=== PATIENT | female | born 1955 | race Caucasian/White ===

== ENCOUNTER 2024-12-19 18:18 | Emergency (ER) | payer MEDICARE, MEDICAID, SELFPAY ==
[2024-12-19 18:21] VITALS: BP 123/79; PULSE 99; RESP 18; TEMP 36.7; O2SAT 98
[2024-12-19 18:32] VITALS: BP 136/89; PULSE 100; PULSE 98; RESP 18; RESP 20; TEMP 36.6; O2SAT 98; BMI 27.3
--- NOTE | 2024-12-19 18:32 | PC.NURSE ---
PT BROUGHT IN BY AMBULANCE FOR FREQUENT FALLS, WITH ANOTHER FALL TODAY. DENIES HITTING HEAD. PER MEDIC DURING TRANSPORT PT WAS MAKING 'WEIRD STATEMENTS.
--- NOTE | 2024-12-19 18:58 | PC.NURSE ---
Rickey FARAH IN TO SEE PT
--- NOTE | 2024-12-19 19:03 | PD.EDFALL ---
ED Fall Injury RME/HPI General Chief Complaint: Fall Stated Complaint: FALL Time Seen by Provider: 12/19/24 18:56 Arrival date/time: 12/19/24 18:18 RME / HPI RME / HPI Narrative: Dr. 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 Patient states she's fallen 3 times in the last few days (one on Thursday and twice today). Patient states she fell today due to her legs being weak. Patient denies any head strikes or loss of consciousness. Patient reports having right thigh pain, but denies any chest pain, shortness of breath, cough, fever, chills, dysuria, headache, neck pain, palpitations or any other associated symptoms. Denies any tobacco, alcohol or illicit drug use. Denies any sick contacts or recent travel. Patient does live alone and uses a cane to ambulate. Related Data Home Medications ?Medication ?Instructions ?Recorded ?Confirmed Levothyroxine * (SYNTHROID *) ##30 02/01/15 Losartan Potassium * (COZAAR *) 100 mg PO QDAY #0 tabs 02/01/15 Allergies Allergy/AdvReac Type Severity Reaction Status Date / Time penicillin Allergy Severe Hives Verified 12/19/24 18:40 Review of Systems Review of Systems Systems Reviewed: All systems reviewed, normal except as documented Past Medical History Past Medical History CARDIAC: Negative Congestive Heart Failure RESPIRATORY: Negative Chronic Obstructive Pulmonary Disease (COPD) GENITOURINARY: Negative Renal Disease ENDOCRINE: Negative Diabetes Mellitus Type 1 or Diabetes Mellitus Type 2 OTHER HISTORY: Positive Falls Social History SMOKING STATUS: Current every day smoker ED Exam Narrative Physical exam: GEN. APPEARANCE: The patient is alert awake oriented X-3 in no distress, lying down comfortably, chronically ill. Patient has good eye contact. Patient is cooperative. VITALS: All vitals were reviewed and the pulse ox is 98% on room air which is normal according to my interpretation. HEENT: Normocephalic, atraumatic. Pupils are equal and reactive. Oral mucosa is moist. Patent Nares NECK: Supple, nontender, no thyromegaly, no meningismus, no JVD, no step offs, no midline tenderness on palpation. CHEST: Symmetrical, atraumatic, and with equal expansion , Nontender on palpation no deformity and no crepitus. CARDIOVASCULAR: Heart regular rhythm no murmur or gallop rub or extra beats. LUNGS: Clear to auscultation bilaterally with symmetrical chest rise. No laboring tachypnea or wheezing. No intercostal subcostal retraction. No rales and no rhonchi. ABDOMEN: Soft, flat, nontender to palpation, no guarding or rebound tenderness. There are no abnormal masses palpated. Active and normal bowel sounds. EXTREMITIES: Tenderness to palpation at the right medial and lateral thigh. N/V intact. No edema. No cyanosis. Patient is able to move all 4 extremities well, with full ROM and good CSM. SKIN: Warm and dry, no jaundice or rashes noted NEURO: Patient is VILLAVICENCIO x 4, Cranial nerves II through XII grossly intact. There is no focal neurologic deficits noted. GCS is 15, PNS and MILLING MACHINE OPERATOR GEAR appear grossly intact. PSYCHIATRIC: Patient is in normal mood and affect. Course Quality Measures none Orders Category Date Time Status EKG (ED ONLY) *Do not use* NOW Care 12/19/24 19:04 Completed Transfuse,blood/blood products NOW Care 12/19/24 20:[address] head/brain wo con Stat Exams 12/19/24 19:04 Completed EKG (ED Only) Stat Exams 12/19/24 19:04 Draft XR femur RT 2V Stat Exams 12/19/24 19:04 Completed XR pelvis 1-2V Stat Exams 12/19/24 19:04 Completed CBC Stat Lab 12/19/24 19:18 Completed CK [Creatine Kinase] Stat Lab 12/19/24 19:18 Completed CMP [Comprehensive Metabolic Panel] Stat Lab 12/19/24 19:18 Completed Troponin I Stat Lab 12/19/24 20:46 Completed Type and Screen Stat Lab 12/19/24 20:46 Received Urinalysis, C/S if Indicated Stat Lab 12/19/24 21:19 Completed Urine Culture Stat Lab 12/19/24 21:19 Received prbc [Red Blood Cells] Stat Lab 12/19/24 20:46 Received Potassium Chloride [K-Dur] Med 12/19/24 20:19 Discontinued 40 meq PO X1 ONE Ringers Lactated 500 ml [Lactated Ringers] 500 ml Med 12/19/24 19:06 Discontinued IV 500 mls/hr Vital Signs Vital signs: Vital Signs Temperature 98.1 F 12/19/24 18:21 Pulse Rate 99 12/19/24 18:21 Respiratory Rate 18 12/19/24 18:21 Blood Pressure 123/79 12/19/24 18:21 Pulse Oximetry (%) 98 12/19/24 18:21 Oxygen Delivery Method Room Air 12/19/24 18:21 Fall MDM Narrative MDM Narrative:: Scribe Attestation: 12/19/24 - Linsey Maher am scribing for and in the presence of Dr. Vincent. Hemoglobin is low at 7.6. Given the patient having generalized weakness, will transfuse 1 unit pRBCs. Patient is hypokalemic, will replete level. Creatinine is 1.9, patient received 500mL of LR. Troponin elevated, EKG without evidence of ischemia and arrhythmia rectal exam performed with inhalation therapy teacher present, which showed guaiac stool is negative. Patient denies any hematemesis, bloody or black stools. Discussed results with the patient and she feels comfortable going home after receiving her blood transfusion. Patient data External records reviewed:: [facility] previous records (Per chart review, patient was seen here on 01/22/20 for laceration of the left leg.) and EMS form Clinical information provided by:: patient Social determinants that could affect healthcare access:: none Patient has the following chronic illnesses:: none How is presenting disease/condition affected by chronic disease/condition?: no chronic disease Evaluation data The following diagnostics were reviewed and interpreted by me:: lab results, radiology exam(s) and EKG tracing(s) Lab and/or radiology exams considered but not ordered:: none Interpretation Summary: Labs remarkable for HnH 7.6/23.5, Potassium 3.1, Creatinine 1.9. EKG done at 1947, NSR, rate of 95, normal intervals, RBBB, no acute ischemia, according to my interpretation. --------- [facility] Report Signed Patient: ANGIE CASTLE [facility]. Record#: [id number] Birthdate: 1955 Age/Sex: 69 / F Location: [facility] Attending Dr: Ordering Physician: Delmy Vincent MD Date of Service: 12/19/24 Procedure(s): CT head/brain wo con Accession Number(s): [id number] cc: Fahad Pate MD; NO PRIMARY/FAMILY,PHYSICIAN; Delmy Vincent MD~ Examination: CT brain head without contrast. 2-D sagittal coronal reconstructions Date and time of exam:December 19, 2024 1921 hours INDICATIONS: Patient fell today with injury to the head, head pain CTDI: vol (mGy):49.5 DLP: (mGycm):976 Technique: Multiple CT axial sections of the brain have been obtained, 5 mm slice thickness. Contrast has not been administered. 2-D sagittal, coronal reconstructions have been obtained Low dose protocols were performed. One or more of the following dose reduction techniques were used; automated exposure control, adjustment of the mA and/or KV according to patient size, use of iterative reconstruction technique. Findings: No significant ventricular enlargement. Intra-axial or extra-axial hemorrhage density is not seen. No mass effect or midline shift Basal cisterns are not remarkable. Fourth ventricle is midline. Cranial vault intact. Impression: Negative for acute hemorrhage, mass effect or midline shift Dictated By: Fahad Pate MD Signed By: <Electronically signed by Fahad Pate MD in OV> 12/19/241951 [facility] Report Signed Patient: ANGIE CASTLE Record#: [id number] Birthdate: 1955 Age/Sex: 69 / F Location: [facility] Attending Dr: Ordering Physician: Delmy Vincent MD Date of Service: 12/19/24 Procedure(s): XR femur RT 2V Accession Number(s): [id number] cc: Chauncey Angel MD; Fahad Pate MD; Delmy Vincent MD~ Examination: Right femur 2 views TECHNIQUE: Right femur 2 views AP lateral Date and time: December 19, 20241950 hours INDICATIONS: Patient fell 3 days ago with injury to the right femur, right femur pain FINDINGS: No acute hip or femoral shaft fracture No foreign body IMPRESSION: No acute fracture Dictated By: Fahad Pate MD Signed By: <Electronically signed by Fahad Pate MD in OV> 12/19/242055 [facility] Report Signed Patient: ANGIE CASTLE [facility] Record#: [id number] Birthdate: 1955 Age/Sex: 69 / F Location: [facility] Attending Dr: Ordering Physician: Delmy Vincent MD Date of Service: 12/19/24 Procedure(s): XR pelvis 1-2V Accession Number(s): [id number] cc: Chauncey Angel MD; Fahad Pate MD; Delmy Vincent MD~ Examination: AP pelvis single view TECHNIQUE: AP portable supine pelvis single view Date and time: December 19, 2024 1949 hours INDICATIONS: Patient fell this week with injury to the pelvis, hip and pelvic pain. FINDINGS: No acute hip or pelvic fracture No hip dislocation IMPRESSION: No acute hip or pelvic fracture Dictated By: Fahad Pate MD Signed By: <Electronically signed by Fahad Pate MD in OV> 12/19/242056 Medications / Prescriptions Medications or Prescriptions considered but not ordered:: none Medication administrations:: Medication Administration History Discontinued Medications Lactated Ringer's (Lactated Ringers) 500 mls @ 500 mls/hr IV .Q1H ONE Stop: 12/19/24 20:05 Last Infusion: 12/19/24 21:12 Dose: Infused Documented By: Admin: 12/19/24 20:03 Dose: 500 mls/hr Documented By: SCOTT Potassium Chloride (Potassium Chloride 20 Meq Tabcr) 40 meq PO X1 ONE Stop: 12/19/24 20:20 Last Admin: 12/19/24 20:39 Dose: 40 meq Documented By: RASHAD see above Consultations Consultation(s) initiated? (list below): No Diagnosis Fall Differential Diagnosis: other (GI bleed, ACS, arrhythmia, ICH, metabolic disturbance, UTI) Most likely diagnosis given after review of the tests above:: anemia, hypokalemia Admission Indicated Admission indicated?: not indicated Admission Request Was there a request for admission?: No Disposition Plan Disposition Plan: Discharge Discharge Attestation Discharge Attestation: The patient and all family members were given an opportunity to ask questions and understood the discharge instructions. Discharge instructions specifically effects, indications for sooner follow up or return to the emergency department, and the expected course of current diagnosis. Patient condition: Stable Critical Care Time Critical Care Time Critical Care Time: Yes Total Critical Care Time (min.): 35 Attestation: The high probability of sudden, clinically significant deterioration in the patient?s condition required the highest level of my preparedness to intervene urgently. The services I provided to this patient were to treat and/or prevent clinically significant deterioration. Services included the following: chart data review, reviewing nursing notes and/or old charts, documentation time, hospice care sales consultant collaboration regarding findings and treatment options, medication orders and management, direct patient care, vital sign assessments and ordering, interpreting and reviewing diagnostic studies and lab tests. Aggregate critical care time includes only time during which I was engaged in work directly related to the patient?s care, as described above, whether at bedside or elsewhere in the Emergency Department. It did not include time spent performing other reported procedures or the services of residents, students, nurses or physician assistants. Discharge Plan Plan Patient Disposition: HOME (Self Care) Prescriptions/Referrals Prescriptions/Med Rec: No Action Levothyroxine * (SYNTHROID *) 25 MCG tablet Qty: 30 Losartan Potassium * (COZAAR *) 100 MG tablet 100 mg PO QDAY Qty: 0 Problem List Clinical Impression: Syncope, Symptomatic anemia Patient/Caregiver Discharge Instructions Discharge Activity: activity as tolerated Education Materials: Anemia Print Language: Spanish Stand Alone Forms: [facility] Award Info., Patient Portal Info Letter
--- NOTE | 2024-12-19 19:04 | EKG_ITS ---
[facility] Test Date: 2024-12-19 Pat Name: ANGIE CASTLE Department: Room: - Gender: Female [employer] Program Director: : 1955 Requested By: Delmy Hernandez Order Number: [id number] Reading MD: Delmy Hernandez Measurements Intervals [place] Rate: 95 P: 64 ID: [id number] QRS: -76 QRSD: 133 T: 27 QT: 378 QTc: 476 Interpretive Statements SINUS RHYTHM RIGHT BUNDLE BRANCH BLOCK [120+ ms QRS DURATION, UPRIGHT V1, 40+ ms S IN I/aVL/V4/V5/V6] LEFT ANTERIOR FASCICULAR BLOCK [QRS AXIS <= -45, QR IN I, RS IN II] No previous ECG available for comparison /store/S0/[id number].pdf
--- NOTE | 2024-12-19 19:04 | XR_ITS ---
Examination: Right femur 2 views TECHNIQUE: Right femur 2 views AP lateral Date and time: December 19, 2024 1951 hours INDICATIONS: Patient fell 3 days ago with injury to the right femur, right femur pain FINDINGS: No acute hip or femoral shaft fracture No foreign body IMPRESSION: No acute fracture
[2024-12-19 19:42] LABS: Basophils % (Auto) 1 % (0-2.5); Eosinophils # (Auto) 0.1 Thou/mm3 (0.0-0.5); Eosinophils % (Auto) 2 % (0-10); Hematocrit 23.5 % (36.0-46.0); Hemoglobin 7.6 g/dL (12.0-16.0); Immature Granulocytes % (Auto) 1 % (0-0); Immature Granulocytes Auto 0.04 Thou/mm3 (0.00-0.00); Lymphocytes # (Auto) 1.2 Thou/mm3 (1.0-4.8); Lymphocytes % (Auto) 20 % (10-50); Mean Corpuscular HGB Conc 32.3 g/dl (31.0-37.0); Mean Corpuscular Hemoglobin 32.9 pg (25.0-35.0); Mean Corpuscular Volume 102 fL (80-100); Monocytes # (Auto) 0.5 Thou/mm3 (0.0-0.8); Monocytes % (Auto) 8 % (0-12); Neutrophils # (Auto) 3.9 Thou/mm3 (1.8-7.7); Neutrophils % (Auto) 68 % (37-80); Nucleated Red Blood Cell % 0 /100 WBC (0); Platelet Count 324 Thou/mm3 (140-440); RDW Standard Deviation 76.9 fL (36.4-46.3); Red Blood Count 2.31 Miln/mm3 (4.00-5.20); White Blood Count 5.8 Thou/mm3 (3.6-11.0)
[2024-12-19 19:56] LABS: Alanine Aminotransferase < 7 U/L (10-49); Albumin, Serum 3.5 gm/dL (3.4-4.8); Albumin/Globulin Ratio 1.7 (1.2-2.2); Alkaline Phosphatase 153 U/L (46-116); Anion Gap 11 (7-16); Aspartate Amino Transferase 18 U/L (0-34); BUN/Creatinine Ratio 8 Ratio (12-20); Bilirubin,Total 0.4 mg/dL (0.3-1.2); Blood Urea Nitrogen 16 mg/dL (9-23); Calcium 9.4 mg/dL (8.3-10.6); Calcium (Corrected) 9.8 mg/dL (8.5-10.1); Carbon Dioxide 26.6 mMol/L (20.0-31.0); Chloride 104 mMol/L (98-107); Creatine Kinase 162 U/L (34-171); Creatinine (Component) 1.9 mg/dL (0.6-1.3); Estimated Creatinine Clearance 31.3 mL/min (>60); Globulin 2.1 gm/dL (2.3-3.5); Glucose 94 mg/dL (74-106); Osmolality,Calculated 284 (275-295); Potassium 3.1 mMol/L (3.4-5.1); Sodium 142 mMol/L (136-145); Total Protein 5.6 gm/dL (5.7-8.2); eGFR 28 See Note
[2024-12-19] MEDS: RINGERS LACTATED 500 ML 500 ML IV (20:03)
--- NOTE | 2024-12-19 20:11 | PC.NURSE ---
EKG done. purewick in place to collect ua
[2024-12-19] MEDS: POTASSIUM CHLORIDE 20 mEq TABCR 40 MEQ PO (20:39)
[2024-12-19 21:12] LABS: Troponin I < 0.020 ng/mL (0.0-0.045)
[2024-12-19 21:24] LABS: Collection Type, Urine Clean Catch; Squamous Epithelial Cell,Urine 0 /hpf (0-5)
[2024-12-19 21:37] LABS: Bacteria,Urine Rare; Bilirubin,Urine Negative (Negative); Blood,Urine Negative (Negative); Clarity,Urine Turbid (Clear/Hazy); Color,Urine Lt-Yellow (Lt Yel-Yel); Culture Indicated,Urine Yes; Glucose, Urine Negative (Negative); Ketones,Urine Negative (Negative); Leukocyte Esterase,Urine Positive (Negative); Nitrite,Urine Positive (Negative); Protein,Urine Negative (Neg - Trace); RBC,Urine 2 /hpf (0-3); Specific Gravity,Urine 1.019 (1.001-1.035); Urobilinogen,Urine Negative mg/dL (0.0-1.0); WBC,Urine 7 /hpf (0-5)
[2024-12-19 22:23] VITALS: BP 179/96; PULSE 88; RESP 24; TEMP 36.8; O2SAT 100
[2024-12-20] VITALS (8 sets, daily range): BP systolic 167–178; BP diastolic 76–102; PULSE 84–95; RESP 17–22; TEMP 36.5–37; O2SAT 98–99
[2024-12-20] MEDS: NICOTINE PATCH 7 MG/24 HR PATCH.TD24 TOP (04:59)
--- NOTE | 2024-12-20 06:19 | PC.NURSE ---
vs taken. mikki care provided. new purewick, brief and complete linen change.
--- NOTE | 2024-12-20 06:53 | PC.NURSE ---
PATIENT CALLED FRIEND JAMES TO CAME GIVE HER A RIDE HOME. HOWEVER, PATIENTS FRIEND DOES NOT FEEL LIKE PATIENT IS SAFE TO GO HOME AND TAKE CARE OF HER SELF. FRIEND STATES, PATIENT IS SEEING PEOPLE THAT ARE . NOTIFIED DR. MESSINA IF PATIENT CAN HAVE A SOCIAL SERVICE CONSULT.
--- NOTE | 2024-12-20 06:56 | EDNOTE_ITS ---
Emergency Room Addendum Addendum Narrative: 0650: The patient was queued for discharged by previous physician Dr. Vincent following completion of blood transfusion. However, I was approached by the RN, who reported that the friend contacted to machine operator hop picker the patient up expressed concerns about her safety at home. The friend reported the patient lives alone and often has visual hallucinations. The friend is requesting the patient be placed into a nursing facility. I spoke with the patient who is awake, alert, and oriented x3. Patient was made aware of her friends concerns and request for jail placement. The patient is declined placement and states she feels safe returning home. She admits to living alone but mentioned she is actively seeking someone to assist her at home. Plan to consult with aids social worker for further evaluation and support. [id number]: The nephrology social worker reports she has met with the patient and spoke with the friend over the phone. Reports they had a long discussion and have a plan set in place for the patient to follow up with PCP for further evaluation. Patient will be discharged home.
--- NOTE | 2024-12-20 07:59 | PC.CC ---
STEVO Olmedo called pts Person to Notify, Christine Blas [phone] and informed her that pt is absolutely declining SNF and wants to go home, as she is ready for d/c. Christine reported that she is concerned because pt is displaying sxs of and is worried to leave her alone. Christine reported that she is the only person that the pts trusts and takes care of her, but does not live with her. Christine stated she plans on filing a Power of Hospice Superintendent for medical purposes over the pt. Christine reported she will p/u pt in about 1 hour and take pthome.
== END 2024-12-20 09:04 | disposition home or self-care (01) ==
PROVIDERS: Emergency Provider Emergency Medicine; PCP Family Medicine
DX: R55 Syncope and collapse (principal); D64.9 Anemia, unspecified; R10.2 Pelvic and perineal pain; M79.604 Pain in right leg; I44.4 Left anterior fascicular block; I45.10 Unspecified right bundle-branch block
CPT/HCPCS: 36415; 36430; 70450; 72170; 73552; 80053; 81001; 82550; 84484; 85025; 86850; 86900; 86901; 86923; 87077; 87086; 87186; 93005; 96360; 99285; J7120; P9016; A9270

== ENCOUNTER 2024-12-23 12:57 | Emergency (ER) | payer OTHER, MEDICAID, SELFPAY ==
[2024-12-23] VITALS (7 sets, daily range): BP systolic 107–162; BP diastolic 63–101; PULSE 79–89; RESP 14–19; TEMP 36.4–37; O2SAT 96–100; BMI 26.6; BMI 11.0
--- NOTE | 2024-12-23 13:30 | XR_ITS ---
Examination: AP chest single view TECHNIQUE: AP portable upright chest single view Date and time: December 23, 2024 1350 hours Comparison October 13, 2005 INDICATIONS: Patient fell today with injury to the chest, chest pain FINDINGS: Normal heart size. No pneumothorax. Clavicles ribs appear intact IMPRESSION: No pneumothorax pulmonary contusion or hemothorax
--- NOTE | 2024-12-23 13:31 | XR_ITS ---
Examination: CT cervical spine without contrast 2-D sagittal reconstructions 2-D coronal reconstructions 3-D reconstructions. Exam date and time:December 23, 2024 1421 hours INDICATIONS: Patient fell today with injury to the neck, neck pain CTDI:vol (mGy) 8.95 DLP: (mGycm) 175 Technique: Multiple 2 mm axial sections of the cervical spine have been obtained. The coronal and sagittal reconstructions have been obtained. 3-D reconstructions have been obtained. Low dose protocols were performed. One or more of the following dose reduction techniques were used; automated exposure control, adjustment of the mA and/or KV according to patient size, use of iterative reconstruction technique. Findings: Axial sections demonstrate intact base of the skull. Cervical fusion C3-C7 Adequate alignment 2 mm anterolisthesis C7 on T1 with advanced disc narrowing C7-T1 C1 exhibit satisfactory relationship to the odontoid. No acute cervical vertebral body fracture seen. Alignment posterior spinous processes satisfactory. Impression: No acute cervical fracture.
--- NOTE | 2024-12-23 13:31 | XR_ITS ---
Examination:Right hip AP, lateral, AP pelvis 3 views Technique: Hip AP lateral, AP pelvis, 3 views Exam date and time:December 23, 2024 1349 hours INDICATIONS: Patient fell today with into the right hip, right hip pain FINDINGS: No right hip fracture or dislocation Left hip bones of the pelvis appear intact IMPRESSION: No acute hip or pelvic fracture Repeat the AP pelvis in 1 day if right hip pain persists.
--- NOTE | 2024-12-23 13:31 | XR_ITS ---
Examination: CT brain head without contrast. 2-D sagittal coronal reconstructions Date and time of exam:December 23, 2024 1421 hours INDICATIONS: Patient fell today with injury to the head, head pain COMPARISON: December 19, 2024 CTDI: vol (mGy):49.9 DLP: (mGycm):966 Technique: Multiple CT axial sections of the brain have been obtained, 5 mm slice thickness. Contrast has not been administered. 2-D sagittal, coronal reconstructions have been obtained Low dose protocols were performed. One or more of the following dose reduction techniques were used; automated exposure control, adjustment of the mA and/or KV according to patient size, use of iterative reconstruction technique. Findings: No significant ventricular enlargement. Intra-axial or extra-axial hemorrhage density is not seen. No mass effect or midline shift Basal cisterns are not remarkable. Fourth ventricle is midline. Cranial vault intact. Impression: Negative for acute hemorrhage, mass effect or midline shift
[2024-12-23] MEDS: SODIUM CHLORIDE 0.9% 1000 ML 1,000 ML 999 ML IV (13:35)
--- NOTE | 2024-12-23 13:37 | PD.EDFALL ---
ED Fall Injury RME/HPI General Chief Complaint: Fall Stated Complaint: FALL Time Seen by Provider: 12/23/24 13:36 Arrival date/time: 12/23/24 12:57 RME / HPI RME / HPI Narrative: 69-year-old female patient with significant history of hypertension hypothyroidism, was brought in by EMS for evaluation regarding fall. Apparently patient sustained 2 ground-level fall today and when the EMS arrived patient was noted to be lying on the ground for several hours according to her. Patient is complaining of right hip pain. Denies any neck pain denies any headache denies any other complaints. No medication was taken prior to arrival. Related Data Home Medications ?Medication ?Instructions ?Recorded ?Confirmed Levothyroxine * (SYNTHROID *) ##30 02/01/15 Losartan Potassium * (COZAAR *) 100 mg PO QDAY #0 tabs 02/01/15 Allergies Allergy/AdvReac Type Severity Reaction Status Date / Time penicillin Allergy Severe Hives Verified 12/19/24 18:40 Review of Systems Review of Systems Narrative Review of Systems: Review of system reviewed and within normal limits except mentioned in HPI ED Exam Narrative Physical exam: VITAL SIGNS: Reviewed. GENERAL APPEARANCE: Alert and interactive, follows commands, no acute distress, HEAD AND FACE: Non-traumatic. ENT: PERRL, pink conjunctivitis, eyelid no trauma, Mucous membrane moist. NECK: Supple, nontender, no nuchal rigidity. CHEST: No tenderness, no crepitus, no paradoxical movement, no retractions. LUNGS: Clear, well ventilated, symmetric, no rales, no wheezing, no ronchi, no stridor, good breath sounds bilaterally. HEART: Regular rate, regular rhythm, no murmur, no gallops. ABDOMEN: Soft, positive bowel sounds, nondistended, no guarding, nontender, no rebound, no masses, RECTAL: Deferred. GENITAL: Deferred. NEUROLOGICAL: Gross motor function intact sensory function intact, Appropriate for age. MUSCULOSKELETAL: low back nontender, full range of motion. EXTREMITIES: Right hip tenderness, full range of motion. SKIN: Color pink, dry, no rash, no lacerations, no abrasions, no contusions. LYMPHATICS: Deferred. Course Quality Measures none Orders Category Date Time Status In and Out Catheter X1 Care 12/23/24 15:13 Completed PT [Referral Physical Therapy] Stat Cons 12/23/24 14:36 Completed Diet Cardiac Diet 12/24/[address] cervical spine wo con Stat Exams 12/23/24 13:[address] head/brain wo con Stat Exams 12/23/24 13:31 Completed XR chest 1V Stat Exams 12/23/24 13:30 Completed XR hip RT w pelvis 2-3V Stat Exams 12/23/24 13:31 Completed B-Type Natriuretic Peptide Stat Lab 12/23/24 13:43 Completed CBC Stat Lab 12/23/24 13:43 Completed CK [Creatine Kinase] Stat Lab 12/23/24 13:43 Completed Comprehensive Metabolic Panel Stat Lab 12/23/24 13:43 Completed Drug Screen,Urine Stat Lab 12/23/24 15:53 Completed Partial Thromboplastin Time Stat Lab 12/23/24 13:43 Completed Prothrombin Time with INR Stat Lab 12/23/24 13:43 Completed Troponin I Stat Lab 12/23/24 13:43 Completed Urinalysis, C/S if Indicated Stat Lab 12/23/24 15:53 Completed Urine Culture Stat Lab 12/23/24 15:53 Results Aspirin Med 12/23/24 13:30 Discontinued 325 mg PO X1 ONE LORazepam [Ativan Inj] Med 12/23/24 13:30 Discontinued 1 mg IVP X1 ONE Nicotine Patch [Nicoderm Patch] Med 12/23/24 17:30 Discontinued 21 mg TOP X1 ONE Nitroglycerin [Nitrostat 1/150] Med 12/23/24 13:30 Discontinued 0.4 mg SL Q5MIN PRN Sodium Chloride 0.9% 1000 ml [Ns] 1,000 ml Med 12/23/24 13:32 Discontinued IV 999 mls/hr cefTRIAXone [Rocephin] 1,000 mg Med 12/23/24 18:21 Discontinued Lidocaine 1% 20 ml [Xylocaine 1% 20 ML] 2.1 ml IM X1 Vital Signs Vital signs: Vital Signs Temperature 97.6 F 12/23/24 13:26 Pulse Rate 85 12/23/24 13:26 Respiratory Rate 19 12/23/24 13:26 Blood Pressure 162/95 H 12/23/24 13:26 Pulse Oximetry (%) 100 12/23/24 13:26 Oxygen Delivery Method Room Air 12/23/24 13:26 Fall MDM Narrative MDM Narrative:: 69-year-old female patient with significant history of hypertension hypothyroidism, was brought in by EMS for evaluation regarding fall. Apparently patient sustained 2 ground-level fall today and when the EMS arrived patient was noted to be lying on the ground for several hours according to her. Patient is complaining of right hip pain. Denies any neck pain denies any headache denies any other complaints. No medication was taken prior to arrival. X-ray of the hip came back unremarkable CT scan of the head came back unremarkable CT scan of the neck came back and unremarkable. His chest x-ray came back unremarkable. Urinalysis positive for UTI. Patient was referred to marriage and family social worker for placement. Care transferred to Dr. Luis for final disposition , Im going home at 1130 PM. Patient data External records reviewed:: None Clinical information provided by:: patient Social determinants that could affect healthcare access:: none Patient has the following chronic illnesses:: Frequent falls How is presenting disease/condition affected by chronic disease/condition?: exacerbated by Evaluation data The following diagnostics were reviewed and interpreted by me:: lab results and radiology exam(s) Lab and/or radiology exams considered but not ordered:: None Interpretation Summary: See results MDM Medications / Prescriptions Medications or Prescriptions considered but not ordered:: None Medication administrations:: Medication Administration History Discontinued Medications Aspirin (Aspirin 325 Mg Tablet) 325 mg PO X1 ONE Stop: 12/23/24 13:31 Last Admin: 12/23/24 13:36 Dose: Not Given Documented By: OLGA Non-Admin Reason: Cancelled by Provider Ceftriaxone Sodium 1,000 mg/ (Lidocaine HCl 2.1 ml) 0 mg IM X1 ONE Stop: 12/23/24 18:22 Last Admin: 12/23/24 18:27 Dose: 2.1 mg Documented By: OLGA Sodium Chloride (Ns) 1,000 mls @ 999 mls/hr IV .Q1H1M ONE Stop: 12/23/24 14:32 Last Infusion: 12/23/24 16:20 Dose: 0 mls/hr Documented By: Admin: 12/23/24 13:35 Dose: 999 mls/hr Documented By: OLGA Lorazepam (Lorazepam 2 Mg/Ml Vial) 1 mg IVP X1 ONE Stop: 12/23/24 13:31 Nicotine (Nicotine Patch 21 Mg/24 Hr Patch.Td24) 21 mg TOP X1 ONE Stop: 12/23/24 17:31 Last Admin: 12/23/24 17:36 Dose: 21 mg Documented By: DB Nitroglycerin (Nitroglycerin 0.4 Mg Subl Btl #25) 0.4 mg SL Q5MIN PRN PRN Reason: CHEST PAIN Ceftriaxone IM Consultations Consultation(s) initiated? (list below): No Diagnosis Fall Differential Diagnosis: syncope and other (Frequent falls, UTI) Most likely diagnosis given after review of the tests above:: Frequent falls, UTI Admission Indicated Admission indicated?: indicated Explain why admission is indicated or not indicated:: For placement Admission Request Was there a request for admission?: No Disposition Plan Disposition Plan: Transfer Discharge Plan Plan Patient Disposition: Xfer Skilled Nsg Fac (SNF) Prescriptions/Referrals Prescriptions/Med Rec: No Action Levothyroxine * (SYNTHROID *) 25 MCG tablet Qty: 30 Losartan Potassium * (COZAAR *) 100 MG tablet 100 mg PO QDAY Qty: 0 Problem List Clinical Impression: Frequent falls, UTI (urinary tract infection) Patient/Caregiver Discharge Instructions Print Language: Tamazight Stand Alone Forms: [facility] Award Info., Patient Portal Info Letter
--- NOTE | 2024-12-23 13:39 | PC.NURSE ---
PT BIBA FOR A FALL. PT LIVES ALONE BUT HAS NEIGHBORS THAT PERIODICALLY GOES AND HELPS PT. PT FELL TWICE TODAY . PT STATES SHES ON ELIQUIS
[2024-12-23 13:54] LABS: Basophils % (Auto) 1 % (0-2.5); Eosinophils # (Auto) 0.1 Thou/mm3 (0.0-0.5); Eosinophils % (Auto) 2 % (0-10); Hematocrit 29.3 % (36.0-46.0); Hemoglobin 9.8 g/dL (12.0-16.0); Immature Granulocytes % (Auto) 1 % (0-0); Immature Granulocytes Auto 0.09 Thou/mm3 (0.00-0.00); Lymphocytes # (Auto) 1.3 Thou/mm3 (1.0-4.8); Lymphocytes % (Auto) 17 % (10-50); Mean Corpuscular HGB Conc 33.4 g/dl (31.0-37.0); Mean Corpuscular Hemoglobin 32.6 pg (25.0-35.0); Mean Corpuscular Volume 97 fL (80-100); Monocytes # (Auto) 0.6 Thou/mm3 (0.0-0.8); Monocytes % (Auto) 8 % (0-12); Neutrophils # (Auto) 5.7 Thou/mm3 (1.8-7.7); Neutrophils % (Auto) 73 % (37-80); Nucleated Red Blood Cell % 0 /100 WBC (0); Platelet Count 328 Thou/mm3 (140-440); RDW Standard Deviation 76.7 fL (36.4-46.3); Red Blood Count 3.01 Miln/mm3 (4.00-5.20); White Blood Count 7.9 Thou/mm3 (3.6-11.0)
[2024-12-23 14:11] LABS: INR 1.2 (0.9-1.3); Partial Thromboplastin Time 30.3 Seconds (22.0-36.0); Prothrombin Time 13.4 Seconds (9.0-12.2)
[2024-12-23 14:15] LABS: B-Type Natriuretic Peptide 104 pg/mL (0-100)
[2024-12-23 14:26] LABS: Alanine Aminotransferase 7 U/L (10-49); Albumin, Serum 3.6 gm/dL (3.4-4.8); Albumin/Globulin Ratio 1.4 (1.2-2.2); Alkaline Phosphatase 149 U/L (46-116); Anion Gap 9 (7-16); Aspartate Amino Transferase 20 U/L (0-34); BUN/Creatinine Ratio 11 Ratio (12-20); Bilirubin,Total 0.2 mg/dL (0.3-1.2); Blood Urea Nitrogen 20 mg/dL (9-23); Calcium 8.8 mg/dL (8.3-10.6); Calcium (Corrected) 9.1 mg/dL (8.5-10.1); Chloride 101 mMol/L (98-107); Creatine Kinase 158 U/L (34-171); Creatinine (Component) 1.9 mg/dL (0.6-1.3); Estimated Creatinine Clearance 27.9 mL/min (>60); Globulin 2.6 gm/dL (2.3-3.5); Glucose 100 mg/dL (74-106); Osmolality,Calculated 276 (275-295); Potassium 3.8 mMol/L (3.4-5.1); Sodium 137 mMol/L (136-145); Total Protein 6.2 gm/dL (5.7-8.2); Troponin I < 0.020 ng/mL (0.0-0.045); eGFR 28 See Note
--- NOTE | 2024-12-23 15:28 | PC.CC ---
Patient is a 69 year-old female who presents to the hospital for fall. ASW received a consultation for SNF placement by bedside, MARY Mendez. GIOVANNAWIdalia made wqth-dy-hexj contact with patient. ASW introduced self, role, and reason for visit. Patient appeared alert and oriented to self, location, and situation. At bedside was patient's neighbor, Christine Blas whom patient provided consent to remain in the room during initial assessment . Patient was pleasant and engaged in initial assessment. Patient reports she is estranged from her two daughters and her neighbor, Christine Blas is the one that has been coming over to help her complete her ADLs. Patient has had generalized weakness and multiple falls recently. She reports that in the past she was able to ambulate with a front wheel walker but recently has not been able to. Patient does not require oxygen and is not a dialysis patient. Patient reports she would like to go to a SNF to help her with rehab. director human services to follow-up with placement. Patient reports she does not have a preference when it comes to SNF.
--- NOTE | 2024-12-23 15:55 | PC.CC ---
Idalia WHITESIDE submitted PASSR. Patient was level 1. GIOVANNAW submitted referral via [facility] to local SNFs.
[2024-12-23 15:59] LABS: Collection Type, Urine Clean Catch
[2024-12-23 16:13] LABS: Bacteria,Urine Rare; Bilirubin,Urine Negative (Negative); Blood,Urine Negative (Negative); Color,Urine Lt-Yellow (Lt Yel-Yel); Glucose, Urine Negative (Negative); Ketones,Urine Negative (Negative); Leukocyte Esterase,Urine Positive (Negative); Nitrite,Urine Positive (Negative); PH,Urine 5.5 (5.0-7.0); Protein,Urine Negative (Neg - Trace); RBC,Urine 2 /hpf (0-3); Specific Gravity,Urine 1.013 (1.001-1.035); Squamous Epithelial Cell,Urine 2 /hpf (0-5); Urobilinogen,Urine Negative mg/dL (0.0-1.0); WBC,Urine 28 /hpf (0-5)
[2024-12-23 16:21] LABS: Amphetamine/Methamp Scrn,U Negative (Negative); Barbiturate Screen,Urine Negative (Negative); Benzodiazepines Screen,Urine Negative (Negative); Benzoylecgonine Screen, Ur Negative (Negative); Fentanyl Screen,Urine Negative (Negative); Opiate Screen,Urine Negative (Negative); THC Screen,Urine Negative (Negative)
[2024-12-23 16:44] LABS: Clarity,Urine Hazy (Clear/Hazy); Culture Indicated,Urine Yes
--- NOTE | 2024-12-23 17:04 | PC.CC ---
GIOVANNAWIdalia met with patient and neighbor to inform them that [facility] had accepted. Patient was receptive to going. ASW inform patient that authorization would need to be obtained from her insurance and this would most likely not occur over the weekend until Thursday or Thursday. GIOVANNAW made telephone contact with Sylvia with [facility] who reports she will start working on authorization on Thursday.
--- NOTE | 2024-12-23 17:26 | PC.CC ---
Idalia WHITESIDE working with another facility ([facility]) to attempt to get auth as well for the patient. ASW updated patient and patient is okay going to either facility.
[2024-12-23] MEDS: NICOTINE PATCH 21 MG/24 HR PATCH.TD24 TOP (17:36)
[2024-12-23] MEDS: cefTRIAXone 1,000 MG, LIDOCAINE 1% 20 ML 2.1 ML IM (18:27)
[2024-12-24] VITALS (8 sets, daily range): BP systolic 106–181; BP diastolic 64–79; PULSE 87–105; RESP 15–19; TEMP 36.6–37; O2SAT 94–99
--- NOTE | 2024-12-24 04:55 | PD.EDADDENDU ---
Emergency Room Addendum <Linsey Angel - Last Filed: 12/24/24 04:57> Addendum Narrative: I took over the care from Sharlene Verma NP at 11 PM on 12/23/2024, see his notes for complete H&P and ED course. I was asked to take over the patient pending insurance authorization for SNF placement. Patient has remained stable while under my observation. Patient is signed out to Dr. Jurado at 0600 on 12/24/2024 pending insurance authorization for SNF placement. <Srinivas Luis MD - Last Filed: 12/24/24 05:07> Addendum Narrative: I took over the care from Sharlene Verma NP at 11 PM on 12/23/2024, see his notes for complete H&P and ED course. I was asked to take over the patient pending insurance authorization for SNF placement. Patient remained stable during my care. Patient transferred to Dr. Jurado at 0600 on 12/24/2024. Srinivas Luis MD
--- NOTE | 2024-12-24 06:30 | EDNOTE_ITS ---
Emergency Room Addendum <Meagan Morales - Last Filed: 12/24/24 13:36> Addendum Narrative: 0600: Care assumed from Dr. Luis, the previous shift emergency physician. Past medical, surgical, social and family history reviewed. Vitals and home medications reviewed. I will assume the care of the patient at this time, pending insurance authorization for SNF placement. Please refer to the emergency department record for history and examination from initial visit.? The patient was placed in ED observation care at 12/24/2024 at 0600 hours. The patient was placed in ED observation care pending SNF placement. The patients past medical history, social history, and family history were reviewed. The plan of care will include serial examinations. While in ED observation the patient will have access to water, food, and personal hygiene. If the patient takes home medication(s), they will be continued in ED observation. Physical exam by me shows patient under no acute distress at this time. 1137: Patient's insurance authorization was accepted. Patient accepted to [facility]. ETA is 1305 hours. 1305: EMS here to transport the patient to [facility]. ED observation care ended at 12/24/2024 at 1305 hours. <Dragan Jurado MD - Last Filed: 12/24/24 14:10> Addendum Narrative: 0600: Care assumed from Dr. Luis, the previous shift emergency physician. Past medical, surgical, social and family history reviewed. Vitals and home medications reviewed. I will assume the care of the patient at this time, pending insurance authorization for SNF placement. Please refer to the emergency department record for history and examination from initial visit.? The patient was placed in ED observation care at 12/24/2024 at 0600 hours. The patient was placed in ED observation care pending SNF placement. The patients past medical history, social history, and family history were reviewed. The plan of care will include serial examinations. While in ED observation the patient will have access to water, food, and personal hygiene. If the patient takes home medication(s), they will be continued in ED observation. Physical exam by me shows patient under no acute distress at this time. Patient was comfortable throughout and had no complaints on my evaluation. 1137: Patient's insurance authorization was accepted. Patient accepted to [facility]. ETA is 1305 hours. 1305: EMS here to transport the patient to [facility]. ED observation care ended at 12/24/2024 at 1305 hours.
--- NOTE | 2024-12-24 08:30 | PC.NURSE ---
breakfast tray provided.
--- NOTE | 2024-12-24 08:42 | PC.CC ---
Idalia WHITESIDE made contact with Chantel with [facility] who reports that she has not received information from the insurance for the patient. GIOVANNAW made face to face contact with patient to provided her with updated information that we are still pending authorization from her insurance and will continue to follow up.
--- NOTE | 2024-12-24 09:12 | PC.CC ---
ASW, attempted to contact [facility] and [facility] to start auth and they are both closed until Thursday.
--- NOTE | 2024-12-24 09:34 | PC.CC ---
0911 Chantel at [facility] reports that the insurance supervisor contact and service clerks for her is going to review clinicals to determine if patient meets criteria.
--- NOTE | 2024-12-24 11:31 | PC.CC ---
Addendum entered by Idalia Hidalgo 12/24/24 11:47: ASWIdalia made contact via text message with Sylvia on the hospital phone to cancel referral to [facility]. Sylvia responded with acceptance of cancellation. Original Note: Idalia WHITESIDE received a call from Chantel with [facility] who reports she was able to obtain authorization. ASW made face to face contact with patient and informed her that we received authorization for [facility]. Patient was receptive and asked that this software writer make contact with her neighbor. ASW made telephone contact with her neighbor Christine to provide updated information. ASW to arrange transportation with [facility] [id number].
--- NOTE | 2024-12-24 14:25 | PC.NURSE ---
PT PICKED UP FOR TRANSPORT TO [facility].
== END 2024-12-24 14:28 | disposition skilled nursing facility (03) ==
PROVIDERS: Nurse Practitioner Family; Emergency Provider Emergency Medicine; PCP Family Medicine
DX: S09.90XA Unspecified injury of head, initial encounter (principal); S19.9XXA Unspecified injury of neck, initial encounter; S29.9XXA Unspecified injury of thorax, initial encounter; M25.551 Pain in right hip; N39.0 Urinary tract infection, site not specified; W18.30XA Fall on same level, unspecified, initial encounter; R29.6 Repeated falls
CPT/HCPCS: 51701; 36415; 70450; 71045; 72125; 73502; 80053; 80307; 81001; 82550; 83880; 84484; 85025; 85610; 85730; 87077; 87086; 87186; 96360; 96361; 96372; J0696; J3490; J7030; A9270

== ENCOUNTER 2025-03-20 10:19 | Inpatient (IN) | payer OTHER, MEDICARE, SELFPAY ==
[2025-03-20] VITALS (11 sets, daily range): BP systolic 93–120; BP diastolic 61–71; PULSE 78–110; RESP 13–92; TEMP 36.3–37.7; O2SAT 88–100
--- NOTE | 2025-03-20 10:43 | XR_ITS ---
Examination: AP chest single view Technique one AP semiupright portable chest single view Date and time: March 20, 2025 1115 hours, comparison December 23, 2024 INDICATIONS: Chest pain today. FINDINGS: Normal heart size. Mild elevation left hemidiaphragm. Mild accentuation interstitial markings at the lung bases. No pneumonia or pulmonary edema Prominent osteopenia IMPRESSION: No pneumonia or pulmonary edema
--- NOTE | 2025-03-20 10:43 | EKG_ITS ---
[facility] Test Date: 2025-03-20 Pat Name: ANGIE CASTLE Department: Room: - Gender: Female Tip Tester: : 1955 Requested By: Justin Hernandez Order Number: [id number] Reading MD: Justin Hernandez Measurements Intervals [place] Rate: 101 P: 48 TX: 131 QRS: -75 QRSD: 126 T: 2 QT: 344 QTc: 448 Interpretive Statements SINUS TACHYCARDIA WITH FREQUENT SUPRAVENTRICULAR PREMATURE COMPLEXES RIGHT BUNDLE BRANCH BLOCK [120+ ms QRS DURATION, UPRIGHT V1, 40+ ms S IN I/aVL/V4/V5/V6] LEFT ANTERIOR FASCICULAR BLOCK [QRS AXIS <= -45, QR IN I, RS IN II] POSSIBLE ANTERIOR MYOCARDIAL INFARCTION , PROBABLY OLD [30 ms Q WAVE IN V3/V4, OR R < 0.2 mV IN V4] Compared to ECG 12/19/2024 19:47:40 Myocardial infarct finding now present Sinus rhythm no longer present /store/S0/[id number]/[id number].pdf
--- NOTE | 2025-03-20 10:43 | PD.EDRME ---
Rapid Medical Screening Exam RME Arrival date/time: 03/20/25 10:19 70-year-old female with a history of COPD, hypertension, and hypothyroidism presents to the emergency room with a chief complaint of shortness of breath and low oxygen levels at home x 1 week I have greeted and performed a focused initial assessment of this patient. A comprehensive ED assessment and evaluation of the patient, analysis of all test results, and completion of the medical decision making process will be conducted by additional ED providers. Chief Complaint: Shortness of Breath/Dyspnea Time Seen by Provider: 03/20/25 10:32 Vital signs: Vital Signs Temperature 98.5 F 03/20/25 10:41 Pulse Rate 102 H 03/20/25 10:41 Respiratory Rate 20 03/20/25 10:41 Blood Pressure 93/66 03/20/25 10:41 Pulse Oximetry (%) 92 L 03/20/25 10:41 Oxygen Delivery Method Room Air 03/20/25 10:41 Vital signs reviewed by provider: Yes
--- NOTE | 2025-03-20 11:04 | EDNOTE_ITS ---
<Statement entered by Faith Rose MD - 03/21/25 06:32> As co-signing physician, I was present and available for consult prn. I concur with the plan and care as documented by the midlevel provider. ED General RME/HPI General Chief complaint: Shortness of Breath/Dyspnea Stated complaint: SOB/COUGH x 2 WKS, SATS 85% AT MD OFFICE Time Seen by Provider: 03/20/25 10:32 Arrival date/time: 03/20/25 10:19 CC: Shortness of breath low oxygen levels and a reported fever at home of 102. HPI ongoing for 1 week. Patient is a daily smoker of approximate 1 pack a day. Was referred by PCP through walk-in portion of the ER. Patient is awake alert oriented denies any chest pain nausea or vomiting. RME / HPI RME / HPI narrative: 03/20/25 10:19 70-year-old female with a history of COPD, hypertension, and hypothyroidism presents to the emergency room with a chief complaint of shortness of breath and low oxygen levels at home x 1 week I have greeted and performed a focused initial assessment of this patient. A c omprehensive ED assessment and evaluation of the patient, analysis of all test results, and completion of the medical decision making process will be conducted by additional ED providers. Related Data Home Medications ?Medication ?Instructions ?Recorded ?Confirmed cyclobenzaprine 5 mg tablet 5 mg PO Q8H 03/20/2503/20 levothyroxine 25 mcg tablet 25 mcg PO DAILY 03/20/25 0 03/20/25 losartan 100 mg tablet 100 mg PO DAILY 03/20/25 rivaroxaban 15 mg tablet (Xarelto) 15 mg PO DAILY 03/0603/20/25 ropinirole 0.5 mg tablet 0.5 mg PO Q8HR 03/20/2503/06 Allergies Allergy/AdvReac Type Severity Reaction Status Date / Time penicillin Allergy Severe Hives Verified 03/20/25 10:22 Review of Systems Review of Systems Narrative Review of Systems: GEN: + fever, no chills, no weight loss EYES: No discharge, no visual changes, no pain HEENT: No ear pain, no congestion, no sore throat PULM: +shortness of breath, no cough, no congestion CV: No chest pain, no dyspnea on exertion, no palpitations GI: No nausea, no vomiting, no diarrhea, no pain, no constipation : No frequency, no urgency, no dysuria MUSC/SKEL: No joint pain, no back pain SKIN: No rash PSYCH: No hallucinations, no depression HEME/LYMPH: No easy bleeding or bruising tendencies NEURO: No weakness, no headache Past Medical History Past Medical History CARDIAC: Negative Congestive Heart Failure RESPIRATORY: Negative Chronic Obstructive Pulmonary Disease (COPD) GENITOURINARY: Negative Renal Disease ENDOCRINE: Negative Diabetes Mellitus Type 1 or Diabetes Mellitus Type 2 OTHER HISTORY: Positive Falls Surgical History SURGICAL: Positive Hysterectomy Social History SMOKING STATUS: Current every day smoker ED Exam Narrative Physical exam: [General: Obese not in any yeah no no change about changes reportedly acute distress Head normocephalic HEENT: Within acceptable limits Neck is supple nontender Chest equal chest rise nontender to palpation Respiratory: Bibasilar end expiratory crackles. Mild tachypnea CV: Rate rhythm is regular, borderline tachycardia, no murmurs rubs or clicks Abdomen is distended secondary to body habitus soft nontender no masses positive bowel sounds all 4 quadrants Back: No CVA tenderness no spinous process tenderness from cervical spine thoracic and lumbar spine Skin: Intact no petechiae rash induration ulceration or crepitus Extremities: Moving all extremity against resistance cap refill less than 2 seconds neurosensory intact Neuro: Awake alert oriented x3 Glascow coma 15 no focal deficits] Course Course Course Narrative: At 1420, patient made a very poor attempt to get up to sit upright complained immediately of dizziness, oxygen saturations decreased to the 70s. The patient after resting sats remain 88% to 85% on room air. Patient has subtle pursed lip breathing. Patient continues to be weak, has subtle tachypnea with pursed lip breathing. Oxygen saturations vary between 82 and 88%. At this time we will admit the patient for hypoxemia and weakness. Patient's case discussed with resident for Dr. Balbuena agrees to accept the patient for admission. Quality Measures none Orders Category Date Time Status Admit to Inpatient Status Routine Admission 03/20/25 16:00 Active Patient Condition Routine Admission 03/20/25 16:00 Ordered Activity as Tolerated Routine Care 03/20/25 16:02 Ordered Ambulate in Room PRN Care 03/20/25 13:11 Active Bedside COVID-19 Antigen Test NOW Care 03/20/25 11:53 Completed Bedside Influenza A&B Antigen Test NOW Care 03/20/25 11:53 Completed COVID-19 Screening Questionnaire NOW Care 03/20/25 15:22 Completed Bicycle I Assembler STAT Care 03/20/25 11:03 Active Continuous Pulse Oximetry STAT Care 03/20/25 11:03 Completed Decision to Admit X1 Care 03/20/25 15:22 Completed EKG (ED ONLY) *Do not use* NOW Care 03/20/25 10:43 Completed In and Out Catheter X1PRN Care 03/20/25 11:03 Completed Insert IV NOW Care 03/20/25 11:03 Active Miscellaneous Nursing Order X1 Care 03/20/25 13:11 Active NPO STAT Care 03/20/25 11:03 Active Notify provider NEEDED Care 03/20/25 16:00 Active Strict Intake and Output Routine Care 03/20/25 11:03 Ordered Vital Signs, Non-Routine Q6H Care 03/20/25 16:15 Ordered Vital Signs, Non-Routine Q6H Care 03/20/25 22:15 Ordered Diet Full Liquid Diet 03/20/25 Dinner Active EKG (ED Only) Stat Exams 03/20/25 10:43 Draft XR chest 1V portable Stat Exams 03/20/25 10:43 Completed ABG [Arterial Blood Gas] Stat Lab 03/20/25 15:36 Completed B-Type Natriuretic Peptide Stat Lab 03/20/25 11:20 Completed Blood Culture (Lab) Stat Lab 03/20/25 12:02 Received CBC AM DRAW Lab 03/21/25 05:00 Ordered CBC AM DRAW Lab 03/22/25 05:00 Ordered CBC AM DRAW Lab 03/23/25 05:00 Ordered CBC Stat Lab 03/20/25 11:20 Completed Comprehensive Metabolic Panel AM DRAW Lab 03/21/25 05:00 Ordered Comprehensive Metabolic Panel AM DRAW Lab 03/22/25 05:00 Ordered Comprehensive Metabolic Panel AM DRAW Lab 03/23/25 05:00 Ordered Comprehensive Metabolic Panel Stat Lab 03/20/25 11:20 Completed LDH (Lactate Dehydrogenase) Stat Lab 03/20/25 11:20 Completed Lactate (Lactic Acid) Stat Lab 03/20/25 11:20 Completed Lipid Panel AM DRAW Lab 03/21/25 05:00 Ordered Magnesium AM DRAW Lab 03/21/25 05:00 Ordered Magnesium AM DRAW Lab 03/22/25 05:00 Ordered Magnesium AM DRAW Lab 03/23/25 05:00 Ordered Magnesium Stat Lab 03/20/25 11:20 Completed Partial Thromboplastin Time Stat Lab 03/20/25 11:20 Completed Phosphorous AM DRAW Lab 03/21/25 05:00 Ordered Phosphorous AM DRAW Lab 03/22/25 05:00 Ordered Phosphorous AM DRAW Lab 03/23/25 05:00 Ordered Phosphorous Stat Lab 03/20/25 11:20 Completed Procalcitonin Stat Lab 03/20/25 11:20 Completed Prothrombin Time with INR Stat Lab 03/20/25 11:20 Completed Troponin I Stat Lab 03/20/25 11:20 Completed Urinalysis, C/S if Indicated Stat Lab 03/20/25 11:45 Completed Acetaminophen Tab [Tylenol Tab] Med 03/20/25 16:02 Discontinued 1,000 mg PO Q6HR PRN Acetaminophen Tab [Tylenol Tab] Med 03/20/25 16:02 Discontinued 1,000 mg PO Q6HR PRN Albuterol/Ipratr Rt Abby [Duoneb Rt Abby] Med 03/20/25 11:53 Discontinued 3 ml INH X1 ONE Heparin Inj Med 03/20/25 16:15 Active 5,000 unit SC Q12HR Magnesium Oxide [Mag-Ox 400] Med 03/20/25 13:08 Discontinued 400 mg PO X1 ONE Ondansetron Inj [Zofran Inj] Med 03/20/25 16:02 Active 4 mg IVP Q6H PRN Pantoprazole Inj [Protonix Inj] Med 03/20/25 21:00 Discontinued 40 mg IVP Q12HR Code Status Routine Oth 03/20/25 15:59 Ordered Oxygen Delivery NOW RT 03/20/25 11:03 Active Vital Signs Vital signs: Vital Signs Temperature 98.5 F 03/20/25 10:41 Pulse Rate 102 H 03/20/25 10:41 Respiratory Rate 20 03/20/25 10:41 Blood Pressure 93/66 03/20/25 10:41 Pulse Oximetry (%) 92 L 03/20/25 10:41 Oxygen Delivery Method Room Air 03/20/25 10:41 Discharge Plan Plan Patient Disposition: Admit Acute Care w/in Hospital Patient condition on transfer: Stable Problem List Clinical Impression: Hypoxemia, Weakness PA/LANDS RESOURCE MANAGER Supervising Physician PA/LANDS RESOURCE MANAGER Supervising Physician: Leroy GALLOWAYP MDM Clinical Information Provided by patient Medical Records Reviewed [facility] Meds/Rx Considered, not Ordered None Labs/Rad/Tests considered, not Ordered None Chronic Illness/Social Conditions which may negatively complicate care or outcome(s)-explain: None or not applicable EKG EKG Interpretation narrative: EKG performed at 1049 shows a ventricular rate of 101 AR interval 131 QRS of 126 QTc of 402. This is sinus tachycardia right bundle branch block. Baseline wander in V3. Lab Interpretation Labs: interpreted by me Lab(s) interpretation(s): CBC shows no leukocytosis and H&H of 10.6 and 33.9 respectively no thrombocytopenia Coags within acceptable limits CMP shows a creatinine of 1.5 glucose of 120 no other electrolyte imbalances or renal impairment Magnesium at 1.3 T. bili at 0.2 Troponin is unremarkable BMP is unremarkable. Procalcitonin is negative. Urine is turbid no WBCs no squamous epithelial or no bacteria. COVID influenza are negative. Imaging Imaging interpretation: interpreted by me Provider imaging interpretation(s): X-ray is unremarkable. Medication Administration(s) Medication Administration History Acetaminophen (Acetaminophen 325 Mg Tablet) 650 mg PO Q6HR PRN PRN Reason: fever >99.9 Stop: 04/19/25 16:01 Albuterol/Ipratropium (Albuterol/Ipratropium (Duoneb) Rt Abby 3 Ml Nebu) 3 ml INH Q6HRRT [facility] Stop: 04/19/25 16:44 Last Admin: 03/20/25 19:31 Dose: 3 ml Documented By: BRITTANY Guaifenesin (Guaifenesin Syrup 200 Mg/10 Ml Udc) 100 mg PO BID [facility]; Protocol Stop: 04/19/25 20:59 Heparin Sodium (Porcine) (Heparin Sod Inj 5000 Unit/Ml Vial) 5,000 unit SC Q12HR [facility] Stop: 04/03/25 16:14 Last Admin: 03/20/25 17:32 Dose: 5,000 unit Documented By: LP Co-signed By: MITCHEL Azithromycin 500 mg/ Sodium (Chloride) 250 mls @ 250 mls/hr IV QDAY@1400 [facility] Stop: 03/23/25 14:59 Methylprednisolone Sodium Succinate (Methylprednisolone Sod Succ 40 Mg/Ml Vial) 40 mg IVP DAILY [facility] Stop: 03/28/25 08:59 Ondansetron HCl (Ondansetron Inj 2 Mg/Ml Inj 2 Ml) 4 mg IVP Q6H PRN; Protocol PRN Reason: NAUSEA OR VOMITING Stop: 04/19/25 16:01 Pantoprazole Sodium (Pantoprazole Inj 40 Mg Vial) 40 mg IVP DAILY [facility] Stop: 04/20/25 08:59 Discontinued Medications Acetaminophen (Acetaminophen 325 Mg Tablet) 1,000 mg PO Q6HR PRN PRN Reason: Fever >101.5 Stop: 04/19/25 16:01 Acetaminophen (Acetaminophen 325 Mg Tablet) 1,000 mg PO Q6HR PRN PRN Reason: PAIN SCALE 1-3 (mild Stop: 04/19/25 16:01 Acetaminophen (Acetaminophen 325 Mg Tablet) 650 mg PO Q6HR PRN PRN Reason: PAIN SCALE 1-3 (mild Stop: 04/19/25 16:01 Albuterol/Ipratropium (Albuterol/Ipratropium (Duoneb) Rt Abby 3 Ml Nebu) 3 ml INH X1 ONE Stop: 03/20/25 11:54 Last Admin: 03/20/25 12:29 Dose: 3 ml Documented By: RAFFY Azithromycin (Azithromycin 250 Mg Tablet) 500 mg PO DAILY@1400 [facility] Stop: 03/22/25 14:01 Guaifenesin/Dextromethorphan (Guaifenesin/Dm 10 Ml Udc) 10 ml PO Q6HR [facility]; Protocol Stop: 03/22/25 17:59 Magnesium Sulfate (Magnesium Sulfate Ivpb) 2 gm in 50 mls @ 25 mls/hr IV X1 ONE Stop: 03/20/25 18:29 Last Infusion: 03/20/25 19:46 Dose: Infused Documented By: Admin: 03/20/25 17:31 Dose: 25 mls/hr Documented By: ERNA Azithromycin 500 mg/ Sodium (Chloride) 250 mls @ 250 mls/hr IV QDAY@1400 [facility] Stop: 03/23/25 13:59 Azithromycin 500 mg/ Sodium (Chloride) 250 mls @ 250 mls/hr IV X1 ONE Stop: 03/20/25 17:59 Last Admin: 03/20/25 17:30 Dose: 250 mls/hr Documented By: ERNA Magnesium Oxide (Magnesium Oxide 400 Mg Tablet) 400 mg PO X1 ONE Stop: 03/20/25 13:09 Last Admin: 03/20/25 13:59 Dose: 400 mg Documented By: LP Methylprednisolone Sodium Succinate (Methylprednisolone Sod Succ 62.5 Mg/Ml 2ml Vial) 125 mg IVP X1 ONE Stop: 03/20/25 17:01 Last Admin: 03/20/25 17:31 Dose: 125 mg Documented By: LP Pantoprazole Sodium (Pantoprazole Inj 40 Mg Vial) 40 mg IVP Q12HR RACHEL Stop: 04/23/25 20:59
--- NOTE | 2025-03-20 11:08 | PC.NURSE ---
SEPSIS ALERT CALLED [phone].
[2025-03-20 11:46] LABS: Lactate (Lactic Acid) 1.5 mMol/L (0.4-2.0)
[2025-03-20 11:48] LABS: Basophils # (Auto) 0.1 Thou/mm3 (0.0-0.2); Basophils % (Auto) 1 % (0-2.5); Eosinophils # (Auto) 0.2 Thou/mm3 (0.0-0.5); Eosinophils % (Auto) 2 % (0-10); Hematocrit 33.9 % (36.0-46.0); Hemoglobin 10.6 g/dL (12.0-16.0); Immature Granulocytes Auto 0.06 Thou/mm3 (0.00-0.00); Lymphocytes # (Auto) 1.4 Thou/mm3 (1.0-4.8); Lymphocytes % (Auto) 16 % (10-50); Mean Corpuscular HGB Conc 31.3 g/dl (31.0-37.0); Mean Corpuscular Hemoglobin 29.7 pg (25.0-35.0); Mean Corpuscular Volume 95 fL (80-100); Monocytes # (Auto) 0.7 Thou/mm3 (0.0-0.8); Monocytes % (Auto) 7 % (0-12); Neutrophils # (Auto) 6.5 Thou/mm3 (1.8-7.7); Neutrophils % (Auto) 74 % (37-80); Nucleated Red Blood Cell # 0.00 Thou/mm3 (0.00-0.00); Nucleated Red Blood Cell % 0 /100 WBC (0); Platelet Count 361 Thou/mm3 (140-440); RDW Standard Deviation 63.8 fL (36.4-46.3); Red Blood Count 3.57 Miln/mm3 (4.00-5.20); White Blood Count 8.9 Thou/mm3 (3.6-11.0)
[2025-03-20 12:00] LABS: INR 1.3 (0.9-1.3); Partial Thromboplastin Time 29.3 Seconds (22.0-36.0); Prothrombin Time 13.5 Seconds (9.0-12.2)
[2025-03-20 12:04] LABS: B-Type Natriuretic Peptide 82 pg/mL (0-100)
[2025-03-20 12:05] LABS: Collection Type, Urine Clean Catch; RBC,Urine 0 /hpf (0-3)
--- NOTE | 2025-03-20 12:15 | PC.NURSE ---
SPOKE W/ ESPERANZA RT RE: PT'S ORDERED BREATHING TX. SHE SAID SHE WOULD COME RIGHT AWAY TO GIVE IT.
[2025-03-20 12:18] LABS: Alanine Aminotransferase < 7 U/L (10-49); Albumin, Serum 3.5 gm/dL (3.4-4.8); Albumin/Globulin Ratio 1.6 (1.2-2.2); Alkaline Phosphatase 109 U/L (46-116); Anion Gap 10 (7-16); Aspartate Amino Transferase 10 U/L (0-34); BUN/Creatinine Ratio 13 Ratio (12-20); Bilirubin,Total 0.2 mg/dL (0.3-1.2); Blood Urea Nitrogen 19 mg/dL (9-23); Calcium 9.5 mg/dL (8.3-10.6); Calcium (Corrected) 9.9 mg/dL (8.5-10.1); Carbon Dioxide 26.6 mMol/L (20.0-31.0); Chloride 106 mMol/L (98-107); Creatinine (Component) 1.5 mg/dL (0.6-1.3); Globulin 2.2 gm/dL (2.3-3.5); Glucose 120 mg/dL (74-106); LDH (Lactate Dehydrogenase) 151 U/L (120-246); Magnesium 1.3 mg/dL (1.6-2.6); Osmolality,Calculated 288 (275-295); Phosphorous 3.8 mg/dL (2.4-5.1); Potassium 4.3 mMol/L (3.4-5.1); Procalcitonin 0.31 ng/ml (0.0-0.49); Sodium 143 mMol/L (136-145); Total Protein 5.7 gm/dL (5.7-8.2); Troponin I < 0.020 ng/mL (0.0-0.045); eGFR 37 See Note
--- NOTE | 2025-03-20 12:25 | PC.CC ---
As per RNs request, ASW provided an Advance Directive to the pt and she stated she will complete when she can.
[2025-03-20] MEDS: ALBUTEROL/IPRATROPIUM (Duoneb) RT SOL 3 ML NEBU INH ×2 (12:29→19:31)
[2025-03-20 12:49] LABS: Amorphous Crystals,Urine Present (Absent); Bilirubin,Urine Negative (Negative); Blood,Urine Negative (Negative); Clarity,Urine Turbid (Clear/Hazy); Color,Urine Yellow (Lt Yel-Yel); Culture Indicated,Urine Not Indicated; Glucose, Urine Negative (Negative); Ketones,Urine Negative (Negative); Leukocyte Esterase,Urine Negative (Negative); Nitrite,Urine Negative (Negative); PH,Urine 7.5 (5.0-7.0); Protein,Urine Negative (Neg - Trace); Specific Gravity,Urine 1.015 (1.001-1.035); Squamous Epithelial Cell,Urine 1 /hpf (0-5); Urobilinogen,Urine Negative mg/dL (0.0-1.0); WBC,Urine < 1 /hpf (0-5)
[2025-03-20] MEDS: MAGNESIUM OXIDE 400 MG TABLET PO (13:59)
--- NOTE | 2025-03-20 14:11 | PC.NURSE ---
ATTEMPTED TO AMB PT BUT SHE IS TOO WEAK AND WALK. PT STOOD AT SIDE OF [facility], STATED SHE FELT DIZZY. O2 SAT DROPPED INTO THE 70'S AND WENT BACK INTO THE 80'S WHEN SHE LAYED BACK DOWN.
[2025-03-20 15:38] LABS: Allen Test Performed/OK; Base Excess -1 (-3-3); HCO3 25 mEq/L (20-26); Inspired Oxygen, FIO2 21 %; O2 Saturation 91 % (91-98); PCO2 50 mmHg (32.0-48.0); PO2 62 mmHg (83-108); Puncture Site Left Radial; pH, Arterial 7.31 (7.35-7.45)
--- NOTE | 2025-03-20 16:48 | PC.NURSE ---
CALLED DR. MARADIAGA RE: PT ALREADY HAVING A UA DONE THIS MORNING. HE SAID HE WOULD DISCONTINUE HIS ORDER FOR A UA; A SECOND ONE DOES NOT NEED TO BE DONE.
--- NOTE | 2025-03-20 17:20 | PC.NURSE ---
ATTEMPTED TO CALL REPORT; NO ANSWER. WILL TRY AGAIN.
[2025-03-20] MEDS: AZITHROMYCIN INJ 500 MG in SODIUM CHLORIDE 0.9% 250 ML 250 ML 250 MG IV (17:30)
[2025-03-20] MEDS: Magnesium Sulfate 2 GM Ivpb 2 GM/50 ML BAG IV (17:31)
[2025-03-20] MEDS: MethylPREDNISolone SOD SUCC 62.5 MG/ML 2ML VIAL 125 MG IVP (17:31)
[2025-03-20] MEDS: HEPARIN SOD INJ 5000 UNIT/ML VIAL SC ×2 (17:32→22:07)
--- NOTE | 2025-03-20 17:49 | PC.NURSE ---
TRIED CALLING REPORT TO MONROE HERNANDEZ/HAWA HERNANDEZ. HAWA ASKED IF SHE COULD CALL ME BACK IN A FEW MINUTES.
--- NOTE | 2025-03-20 18:11 | PC.NURSE ---
HAWA HERNANDEZ CALLED BACK FOR REPORT; REPORT GIVEN.
--- NOTE | 2025-03-20 18:30 | PC.NURSE ---
PT TRANSFERRED TO [facility] ROOM [facility][id number] VIA [facility] ACCOMPANIED BY RN. CARE ENDORSED TO MONROE/HAWA HERNANDEZ.
--- NOTE | 2025-03-20 18:35 | ESHP_ITS ---
<Statement entered by Caleb Vargas MD - 03/20/25 20:19> Elana Salazar is a 70-year-old female with a past medical history of COPD and longstanding/current tobacco use, hypertension, hypothyroidism,? CHF who presented for shortness of breath. Patient was noted to have likely viral illness approximately 1 week ago and now presents saturating 92% on RA but would desaturate into the 70s with minimal exertion. She currently smokes 1.5 packs/day, is not on home oxygen, and does have home health who states patient saturates normally in the high 90s. CBC unremarkable other than normocytic anemia, CHEM panel showed creatinine of 1.5 (previous creatinine 1.9), and ABG showed pH 7.31, pCO2 50, and pO2 of 62. CXR unremarkable, EKG with right bundle branch block and sinus tachycardia. Suspect that patient presents with COPD exacerbation secondary to previous viral illness and will be started on DuoNebs, azithromycin, systemic steroids, and chest PT. ----- Note reviewed and agree with care plan as documented. Please refer to the note below for further details. Plan discussed with attending physician Dr. Sree Vargas MD PGY-2 Internal Medicine Documentation for date of: 03/20/25 HPI History of Present Illness History of present illness: HPI: Elana Salazar is a 70-year-old female with a past medical history of COPD and longstanding/current tobacco use, hypertension, hypothyroidism, ?CHF who presented to the ED on 03/21/2025 for shortness of breath. Patient was noted to have oxygen saturation of 88% when a traveling nurse came to care for her two days ago, she was given 5 puffs of her inhaler, and still kept desatting into 77. Called in [facility], who recommended ED visit, but pt waited until this morning because she a an appt with her PCP, who ended up making the same recommendation to her. renal dietitian notes that within the last week, she had been sick with a flu and possibly the patient contracted from her. Patient had nausea and vomited, couldn't eat anything. ED Course: At arrival, VSS BP 93/66. HR 102, RR 20, T 98.5. O2 92% on 2L via NC. Labs showed CBC unremarkable other than normocytic anemia, CHEM panel showed creatinine of 1.5 (previous creatinine 1.9), and ABG showed pH 7.31, pCO2 50, and pO2 of 62.? CXR unremarkable, EKG with right bundle branch block and sinus tachycardia. Meds: cyclobenzaprine 5mg TID, levothyroxine 25mcg, losartan 100mg, Xeralto 15mg, ropinirole .5mg TID Allergy: Penicillin PMHx: breast cancer, anemia, and Lt leg DVT. PSHx: carpal tunnel decompression, hysterectomy, Fam Hx: [non-contributory] Soc Hx: Smoked 1.5ppd for 15y and current smoker. Used to drink heavily until she entered a rehab facility in January of this year and had to quit. Used to smoke marijuana. Consumes THC edible as sleep aid currently. Exam Vital Signs Temp Pulse Resp BP Pulse Ox O2 Del Method O2 Flow Rate 98 F 89 18 120/71 97 Room Air 2 03/20/25 16:03/20/25 16:03/20/25 16:03/20/25 16:03/20/25 16:03/20/25 16:03/20/25 16:00 Narrative Exam General: somnolent, No apparent distress. Skin: Intact, Warm, no rashes. HEENT: Normocephalic, Atraumatic. Normal neck range of motion, Supple. Trachea midline. Respiratory: Lungs are clear to auscultation, Breath sounds are equal bilaterally with equal chest expansion. Cardiovascular: RRR, normal S1, S2, No murmurs. Distal pulses 2+ Abdomen: Abdomen non-distended, without erythema, or lesions. Normotensive bowel sounds x4. Percussion tympanic. Palpation soft, nontender in all four quadrants. No organomagely. Absent rigidity, guarding, or rebound. Musculoskeletal/Extremities: No erythema, swelling, tenderness of any joints. No edema of BLE. DP pulses +2/3 b/l. Full active ROM of all four extremities. Neurologic: NEURO: Oriented x3, cranial nerves II to XII grossly intact. Muscle strength 5/5 on UE and LE b/l, Moves extremities x4. Sensation intact to gross touch along C6-T1 and L2-S1 dermatomes. No focal neurologic deficits noted Psych: Thoughts linear and responses appropriate. Results: Labs 03/21/25 05:00 03/21/25 05:00 Labs: Short CBC 03/20/25 Range/Units 11:20 WBC 8.9 (3.6-11.0) Thou/mm3 Hgb 10.6 L (12.0-16.0) g/dL Hct 33.9 L (36.0-46.0) % Plt Count 361 (140-440) Thou/mm3 BMP 03/20/25 11:20 Sodium 143 Potassium 4.3 Chloride 106 Carbon Dioxide 26.6 BUN 19 Creatinine 1.5 H Glucose 120 H Calcium 9.5 Cardiac Enzymes 03/20/25 Range/Units 11:20 Troponin I < 0.020 (0.0-0.045) ng/mL Liver Function 03/20/25 Range/Units 11:20 Total Bilirubin 0.2 L (0.3-1.2) mg/dL AST 10 (0-34) U/L ALT < 7 L (10-49) U/L Alkaline Phosphatase 109 (46-116) U/L Albumin 3.5 (3.4-4.8) gm/dL Urine 03/20/25 Range/Units 11:45 Urine Color Yellow (Lt Yel-Yel) Urine Clarity Turbid A (Clear/Hazy) Urine pH 7.5 H (5.0-7.0) Ur Specific [place] 1.015 (1.001-1.035) Urine Protein Negative (Neg - Trace) Urine Glucose (UA) Negative (Negative) ABG Interpretation ABG results: 03/20/25 15:36 ABG pH 7.31 L ABG pCO2 50 H ABG pO2 62 L ABG HCO3 25 ABG O2 Saturation 91 ABG Base Excess -1 Quality Measures Quality Measures VTE prophylaxis Advance care planning discussed with:: patient Medications Home Medications and Allergies Home Medications ?Medication ?Instructions ?Recorded ?Confirmed ?Type cyclobenzaprine 5 mg tablet 5 mg PO Q8H 03/20/2503/20 History levothyroxine 25 mcg tablet 25 mcg PO DAILY 03/20/25 0 03/20/25 History losartan 100 mg tablet 100 mg PO DAILY 03/20/25 History rivaroxaban 15 mg tablet (Xarelto) 15 mg PO DAILY 03/0603/20/25 History ropinirole 0.5 mg tablet 0.5 mg PO Q8HR 03/20/2503/06 History Allergies Allergy/AdvReac Type Severity Reaction Status Date / Time penicillin Allergy Severe Hives Verified 03/20/25 10:22 Visit Medications Acetaminophen (Acetaminophen 325 Mg Tablet) 650 mg PO Q6HR PRN PRN Reason: fever >99.9 Stop: 04/19/25 16:01 Albuterol/Ipratropium (Albuterol/Ipratropium (Duoneb) Rt Abby 3 Ml Nebu) 3 ml INH Q6HRRT RACHEL Stop: 04/19/25 16:44 Guaifenesin (Guaifenesin Syrup 200 Mg/10 Ml Udc) 100 mg PO BID [facility]; Protocol Stop: 04/19/25 20:59 Heparin Sodium (Porcine) (Heparin Sod Inj 5000 Unit/Ml Vial) 5,000 unit SC Q12HR RACHEL Stop: 04/03/25 16:14 Last Admin: 03/20/25 17:32 Dose: 5,000 unit Azithromycin 500 mg/ Sodium (Chloride) 250 mls @ 250 mls/hr IV QDAY@1400 [facility] Stop: 03/23/25 14:59 Methylprednisolone Sodium Succinate (Methylprednisolone Sod Succ 40 Mg/Ml Vial) 40 mg IVP DAILY [facility] Stop: 03/28/25 08:59 Ondansetron HCl (Ondansetron Inj 2 Mg/Ml Inj 2 Ml) 4 mg IVP Q6H PRN; Protocol PRN Reason: NAUSEA OR VOMITING Stop: 04/19/25 16:01 Pantoprazole Sodium (Pantoprazole Inj 40 Mg Vial) 40 mg IVP DAILY [facility] Stop: 04/20/25 08:59 Discontinued Medications Acetaminophen (Acetaminophen 325 Mg Tablet) 1,000 mg PO Q6HR PRN PRN Reason: Fever >101.5 Stop: 04/19/25 16:01 Acetaminophen (Acetaminophen 325 Mg Tablet) 1,000 mg PO Q6HR PRN PRN Reason: PAIN SCALE 1-3 (mild Stop: 04/19/25 16:01 Acetaminophen (Acetaminophen 325 Mg Tablet) 650 mg PO Q6HR PRN PRN Reason: PAIN SCALE 1-3 (mild Stop: 04/19/25 16:01 Albuterol/Ipratropium (Albuterol/Ipratropium (Duoneb) Rt Abby 3 Ml Nebu) 3 ml INH X1 ONE Stop: 03/20/25 11:54 Last Admin: 03/20/25 12:29 Dose: 3 ml Azithromycin (Azithromycin 250 Mg Tablet) 500 mg PO DAILY@1400 RACHEL Stop: 03/22/25 14:01 Guaifenesin/Dextromethorphan (Guaifenesin/Dm 10 Ml Udc) 10 ml PO Q6HR RACHEL; Protocol Stop: 03/22/25 17:59 Magnesium Sulfate (Magnesium Sulfate Ivpb) 2 gm in 50 mls @ 25 mls/hr IV X1 ONE Stop: 03/20/25 18:29 Last Admin: 03/20/25 17:31 Dose: 25 mls/hr Azithromycin 500 mg/ Sodium (Chloride) 250 mls @ 250 mls/hr IV QDAY@1400 RACHEL Stop: 03/23/25 13:59 Azithromycin 500 mg/ Sodium (Chloride) 250 mls @ 250 mls/hr IV X1 ONE Stop: 03/20/25 17:59 Last Admin: 03/20/25 17:30 Dose: 250 mls/hr Magnesium Oxide (Magnesium Oxide 400 Mg Tablet) 400 mg PO X1 ONE Stop: 03/20/25 13:09 Last Admin: 03/20/25 13:59 Dose: 400 mg Methylprednisolone Sodium Succinate (Methylprednisolone Sod Succ 62.5 Mg/Ml 2ml Vial) 125 mg IVP X1 ONE Stop: 03/20/25 17:01 Last Admin: 03/20/25 17:31 Dose: 125 mg Pantoprazole Sodium (Pantoprazole Inj 40 Mg Vial) 40 mg IVP Q12HR RACHEL Stop: 04/23/25 20:59 Assessment & Plan Plan Elana Salazar is a 70-year-old female with a past medical history of COPD and longstanding/current tobacco use, hypertension, hypothyroidism, ?CHF who presented to the ED on 03/20/2025 for shortness of breath. #Acute COPD exacerbation 2/2 #Recent Viral URI, likely Ddx: acute PE Pt had presented to the ED with acute SOB and supplemental oxygen demands above her baseline. ABG: pH 7.31. pCO2 50, and PaO2 62. EKG: RBBB and sinus tachycardia CXR: no pneumonia or pulmonary edema Well's score =6, high risk group, PE liklihood >28% Plan: -Duonebs Q6h -Methylprednisolone 125mg x1, follwed by 40mg QD -Guaifenecin PO 100mg bid, ordered without dextromethorphan to sustain tussive reflex beneficial for airway clearance. -Azithromycin 500mg for three days (03/20 -) -Chest physiotherapy daily #hypothyroidism -will resume home levothyroxine PO 25mcg QD #Hypertension, secondary -will resume home losartan PO 100mg QD #Parkinson's - will resume home ropinirole 0.5mg TID #hx of LLE DVT - will resume Xeralto 15mg QD #Active smoker #smoking for 15y - referral to smoking cessation counseling Health Maintenance: Disposition: Treatment including chest physiotherapy and RT in addition to standard medication for COPD exacerbation in Med Tele Diet: full liquid, pending nurse swallow screen to advance PPx DVT: Heparin SC PPx GI: Protonix IVP 40mg QD Code Status: DNI, OK to resuscitate This case was discussed with my attending physician, Dr. Balbuena, and senior resident, Dr Sam Canchola. Tristin Raya DO PGY I Attending Provider Attestation/Addendum I, Salome Balbuena DO, attest that I was physically present for the edwards portions of the service and evaluated the patient with the resident and I reviewed and discussed the case with the resident and agree with the resident's findings and plans of care as documented above Patient is a 70-year-old female with past medical history of chronic tobacco use, hypertension, hypothyroidism and COPD who presented to the ED due to worsening shortness of breath. Patient has been quite somnolent. Patient had a recent viral illness about 2 weeks ago. Patient has been requiring her rescue inhaler, but continued to desaturate around the 70s at home. Patient is noted to have diminished bibasilar breath sounds with inspiratory and expiratory wheezing and rhonchi. Patient currently on 2L/NC and states that she used to use supplemental O2 at home. She endorses increased sputum production, cough and shortness of breath. She denies any fevers or chest pain. Will admit to med/ tele for further workup and medical managment of acute COPD exacerbation. Will start patient on solumedrol, breathing treatments and azithromcyin for both antibiotic and antiinflammatory effects.
--- NOTE | 2025-03-20 18:51 | PC.NURSE ---
received pt from MARY Shafer in ED. Pt A&Ox4, just a little groggy, follows directions. Pt is on 2L n.c. vss, belongings sheet and POC done.
--- NOTE | 2025-03-20 19:00 | PC.NURSE ---
Report received, pt recent ER admit, resting in bed magnesium infusion completing. Call light within reach
[2025-03-20] MEDS: guaiFENesin SYRUP 200 MG/10 ML UDC 100 MG PO (22:06)
[2025-03-21] VITALS (12 sets, daily range): BP systolic 105–127; BP diastolic 66–72; PULSE 62–109; RESP 16–93; TEMP 36.1–36.3; O2SAT 92–100; BMI 13.0
[2025-03-21] MEDS: ALBUTEROL/IPRATROPIUM (Duoneb) RT SOL 3 ML NEBU INH ×4 (00:52→18:59)
[2025-03-21 05:36] LABS: Basophils # (Auto) 0.0 Thou/mm3 (0.0-0.2); Basophils % (Auto) 0 % (0-2.5); Eosinophils # (Auto) 0.0 Thou/mm3 (0.0-0.5); Eosinophils % (Auto) 0 % (0-10); Hematocrit 32.0 % (36.0-46.0); Hemoglobin 9.9 g/dL (12.0-16.0); Immature Granulocytes Auto 0.03 Thou/mm3 (0.00-0.00); Lymphocytes # (Auto) 0.7 Thou/mm3 (1.0-4.8); Lymphocytes % (Auto) 14 % (10-50); Mean Corpuscular HGB Conc 30.9 g/dl (31.0-37.0); Mean Corpuscular Hemoglobin 29.2 pg (25.0-35.0); Mean Corpuscular Volume 94 fL (80-100); Monocytes # (Auto) 0.1 Thou/mm3 (0.0-0.8); Monocytes % (Auto) 1 % (0-12); Neutrophils # (Auto) 4.2 Thou/mm3 (1.8-7.7); Neutrophils % (Auto) 84 % (37-80); Nucleated Red Blood Cell # 0.00 Thou/mm3 (0.00-0.00); Nucleated Red Blood Cell % 0 /100 WBC (0); Platelet Count 297 Thou/mm3 (140-440); RDW Standard Deviation 62.1 fL (36.4-46.3); Red Blood Count 3.39 Miln/mm3 (4.00-5.20); White Blood Count 5.0 Thou/mm3 (3.6-11.0)
[2025-03-21 06:14] LABS: Anion Gap 10 (7-16); BUN/Creatinine Ratio 10 Ratio (12-20); Blood Urea Nitrogen 13 mg/dL (9-23); Carbon Dioxide 26.0 mMol/L (20.0-31.0); Chloride 106 mMol/L (98-107); Creatinine (Component) 1.3 mg/dL (0.6-1.3); Glucose 149 mg/dL (74-106); Potassium 4.6 mMol/L (3.4-5.1); Sodium 142 mMol/L (136-145); eGFR 44 See Note
[2025-03-21 06:15] LABS: Alanine Aminotransferase < 7 U/L (10-49); Albumin, Serum 3.3 gm/dL (3.4-4.8); Albumin/Globulin Ratio 1.2 (1.2-2.2); Alkaline Phosphatase 99 U/L (46-116); Aspartate Amino Transferase < 8 U/L (0-34); Bilirubin,Total 0.2 mg/dL (0.3-1.2); Calcium 9.2 mg/dL (8.3-10.6); Calcium (Corrected) 9.8 mg/dL (8.5-10.1); Cardiac Risk Estimate 2.7 RATIO (3.7-5.6); Cholesterol 125 mg/dL (132-200); Globulin 2.7 gm/dL (2.3-3.5); HDL Cholesterol 47 mg/dL (40-60); LDL Cholesterol,Calculated 66 mg/dL (0-130); Magnesium 1.6 mg/dL (1.6-2.6); Osmolality,Calculated 286 (275-295); Phosphorous 3.7 mg/dL (2.4-5.1); Total Protein 6.0 gm/dL (5.7-8.2); Triglycerides 59 mg/dL (30-150)
[2025-03-21] MEDS: LEVOTHYROXINE SODIUM 25 MCG TABLET PO (08:40)
[2025-03-21] MEDS: guaiFENesin SYRUP 200 MG/10 ML UDC 100 MG PO ×2 (08:41→20:15)
[2025-03-21] MEDS: HEPARIN SOD INJ 5000 UNIT/ML VIAL SC (08:45)
--- NOTE | 2025-03-21 13:02 | ESPR_ITS ---
<Statement entered by Caleb Vargas MD - 03/21/25 13:09> No acute overnight events. Seen and examined at bedside and patient appears much more alert compared to yesterday. She was saturating well on 2 L nasal cannula and did not appear in respiratory distress. Diet changed to renal diet, restarted home Xarelto that patient states she takes indefinitely for DVTs. Will continue with DuoNebs, Solu-Medrol, and azithromycin. Anticipate discharge within next 24 to 48 hours so long as she continues to improve. ----- Note reviewed and agree with care plan as documented. Please refer to the note below for further details. Plan discussed with attending physician Dr. Sree Vargas MD PGY-2 Internal Medicine Documentation for date of: 03/21/25 Subjective Subjective Interval history: Patient seen and examined at bedside. No significant overnight events. Hemoglobin is 9.9 down from 10.6. Patient is satting at 98% on 2 L nasal cannula. Will continue with COPD exacerbation treatment. PT ordered. Clarification was made with the patient as to why she is taking Xarelto, will resume. Exam Vital Signs Temp Pulse Resp BP Pulse Ox O2 Del Method O2 Flow Rate 97.2 F 84 18 127/72 98 Nasal Cannula 2 03/21/25 07:41 03/21/25 12:55 03/21/25 12:55 03/21/25 07:41 03/21/25 12:55 03/21/25 07:41 03/21/25 12:55 Narrative Exam General: Patient is short of breath to the point where she cannot finish a sentence. Awake and in no acute distress. Neurologic: GCS 15. Alert and oriented x3, no gross neurological deficit, and patient able to move all 4 extremities. HEENT: Normocephalic, atraumatic, mucous membranes moist. Pupils reactive to light. Heart: Regular rate and rhythm, normal S1 and S2, no murmurs. Lungs: Increased work of breathing, expiratory wheezes bilaterally, slight accessory muscle use for respiration. Abdomen: Soft, nondistended, nontender, positive bowel sounds. No guarding or rebound tenderness. Extremities: No edema. 2+ radial and dorsalis pedis pulses bilaterally. Skin: Warm. Dry. No rash or ecchymoses. Objective Labs 03/22/25 05:16 03/22/25 05:16 Labs: Laboratory Results - last 24 hr 03/20/25 03/21/25 15:36 05:00 WBC 5.0 D RBC 3.39 L Hgb 9.9 L Hct 32.0 L MCV 94 MCH 29.2 MCHC 30.9 L RDW Std Deviation 62.1 H Plt Count 297 D Neut % (Auto) 84 H Lymph % (Auto) 14 Summers % (Auto) 1 Eos % (Auto) 0 Baso % (Auto) 0 Neut # (Auto) 4.2 Lymph # (Auto) 0.7 L Summers # (Auto) 0.1 Eos # (Auto) 0.0 Baso # (Auto) 0.0 Immature Gran # (Auto) 0.03 H Absolute Nucleated RBC 0.00 Immature Gran % 1 H Nucleated RBC % 0 Puncture Site Left Radial ABG pH 7.31 L ABG pCO2 50 H ABG pO2 62 L ABG HCO3 25 ABG O2 Saturation 91 ABG Base Excess -1 FiO2 21 Sodium 142 Potassium 4.6 Chloride 106 Carbon Dioxide 26.0 Anion Gap 10 BUN 13 Creatinine 1.3 Estim Creat Clear Calc Not Performed. eGFR 44 L BUN/Creatinine Ratio 10 L Glucose 149 H Calculated Osmolality 286 Calcium 9.2 Corrected Calcium 9.8 Phosphorus 3.7 Magnesium 1.6 Total Bilirubin 0.2 L AST < 8 ALT < 7 L Alkaline Phosphatase 99 Total Protein 6.0 Albumin 3.3 L Globulin 2.7 Albumin/Globulin Ratio 1.2 Triglycerides 59 Cholesterol 125 L LDL Cholesterol, Calc 66 HDL Cholesterol 47 Cholesterol/HDL Ratio 2.7 L ABG Interpretation ABG results: 03/20/25 15:36 ABG pH 7.31 L ABG pCO2 50 H ABG pO2 62 L ABG HCO3 25 ABG O2 Saturation 91 ABG Base Excess -1 Quality Measures Quality Measures VTE prophylaxis Advance care planning discussed with:: patient Assessment & Plan Assessment Current Active Medications: Generic Name Dose Route Start Last Admin Trade Name Freq PRN Reason Stop Dose Admin Acetaminophen 650 mg 03/20/25 17:06 Acetaminophen 325 Mg Tablet PO 04/19/25 16:01 Q6HR PRN fever >99.9 Albuterol/Ipratropium 3 ml 03/20/25 16:45 03/21/25 12:55 Albuterol/Ipratropium (Duoneb) Rt Abby 3 Ml Nebu INH 04/19/25 16:44 3 ml Q6HRRT RACHEL Administration Guaifenesin 100 mg 03/20/25 21:00 03/21/25 08:41 Guaifenesin Syrup 200 Mg/10 Ml Udc PO 04/19/25 20:59 100 mg BID RACHEL Administration Protocol Heparin Sodium (Porcine) 5,000 unit 03/20/25 16:15 03/21/25 08:45 Heparin Sod Inj 5000 Unit/Ml Vial SC 04/03/25 16:14 5,000 unit On Hold: 03/21/25 11:56 Q12HR RACHEL Administration Comment: XARELTO ACTIVE Azithromycin 500 mg/ Sodium 250 mls @ 250 mls/hr 03/21/25 14:00 Chloride IV 03/23/25 14:59 QDAY@1400 RACHEL Levothyroxine Sodium 25 mcg 03/21/25 09:00 03/21/25 08:40 Levothyroxine Sodium 25 Mcg Tablet PO 04/20/25 08:59 25 mcg ACBR RACHEL Administration Methylprednisolone Sodium Succinate 40 mg 03/21/25 09:00 03/21/25 08:45 Methylprednisolone Sod Succ 40 Mg/Ml Vial IVP 03/28/25 08:59 40 mg DAILY RACHEL Administration Ondansetron HCl 4 mg 03/20/25 16:02 Ondansetron Inj 2 Mg/Ml Inj 2 Ml IVP 04/19/25 16:01 Q6H PRN NAUSEA OR VOMITING Protocol Pantoprazole Sodium 40 mg 03/22/25 09:00 Pantoprazole 40 Mg Tablet PO 04/21/25 08:59 DAILY RACHEL Protocol Rivaroxaban 10 mg/ Rivaroxaban 15 mg 03/21/25 17:30 5 mg PO 04/20/25 17:29 WSUPPER RACHEL Plan Summary: Elana Salazar is a 70-year-old female with a past medical history of COPD and longstanding/current tobacco use, hypertension, hypothyroidism, and possible CHF who presented to the ED on 03/20/2025 for shortness of breath. She was admitted for management of her acute COPD exacerbation. #COPD exacerbation 2/2 #Recent Viral URI versus #History of smoking [id number] #Active smoker * Ddx: acute PE * Pt had presented to the ED with acute SOB and supplemental oxygen demands above her baseline, patient is not on home oxygen but was in the past * ABG on arrival: pH 7.31. pCO2 50, and PaO2 62. * EKG on arrival: RBBB and sinus tachycardia * CXR: no pneumonia or pulmonary edema * Well's score =6 on arrival, Wells score equals 3 on 03/21/2025, low suspicion of PE at this time due to proving her respiratory status after treatment with supplemental oxygen, steroids, and antibiotics. Plan: * Duonebs Q6h * Methylprednisolone 125mg x1, follwed by 40mg QD * Guaifenecin PO 100mg bid, ordered without dextromethorphan to sustain tussive reflex beneficial for airway clearance. * Azithromycin 500mg for three days (03/20 -) * Chest physiotherapy daily * Titrate oxygen to a goal saturation of 90% * Nicotine patch as needed * Referral for smoking cessation counseling * Follow-up ambulatory oxygen saturation #Hypothyroidism * Patient has a history of hypothyroidism Plan: * Continue home levothyroxine PO 25mcg QD #Hypertension, secondary * Patient has an established history of hypertension Plan: * Continue home losartan PO 100mg QD #Parkinson's * Patient has an established history of Parkinson's Plan: * Continue home ropinirole 0.5mg TID #hx of LLE DVT * Per the patient's history, 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 Continuing treatment for COPD exacerbation, physical therapy ordered, chest physiotherapy ordered as well. Titrating oxygen. Diet: full liquid, pending nurse swallow screen to advance PPx DVT: Heparin SC PPx GI: Protonix IVP 40mg QD Code Status: DNI, OK to resuscitate This case was discussed with my attending physician Dr. Sree KILPATRICK and my senior resident Dr. Sam JIMENEZ PGY-2. Mayank Schmitt DO PGY-1 Attending Provider Attestation/Addendum I, Salome Balbuena DO, attest that I was physically present for the edwards portions of the service and evaluated the patient with the resident and I reviewed and discussed the case with the resident and agree with the resident's findings and plans of care as documented above Patient seen and eval this a.m. She states that she is feeling much better today. She continues to have mild wheezing and bilateral lung witt. She is currently on 2 L nasal cannula. Some shortness of breath and breaks in sentences noted with speech. Will continue with steroids and breathing treatments at this time. Will continue home Xarelto as patient has history of recurrent DVTs. If patient remains stable in a.m. on 2 L nasal cannula or less, patient can likely be discharged home. No acute events overnight patient has been afebrile. She will likely need home O2 on discharge. Will do ambulatory O2 testing.
--- NOTE | 2025-03-21 13:50 | PC.SS ---
Elana Salazar is a 70-year-old female admitted to [facility] for COPD Exacerbation. SS conducted bedside contact with the patient to complete initial assessment and to discuss discharge planning. Role and reason explained. Patient confirmed demographic information. Patient identifies caregiver Christine Blas [phone] as her surrogate decision maker. Pt states she is able to complete all ADL?s independently. Pt has a wheelchair and cane at home for appointment. Pts PCP is Dr. Angel [facility], last visit yesterday -. Discharge options discussed and the pt wishes to return home.? Family will provide transportation upon DC. No further intervention required at this time, family welfare social work professor would be available to address any further concerns. DC Plan: Home Contact: Christine Blas Address: Confirmed on face sheet PCP: Stanley ?
[2025-03-21] MEDS: AZITHROMYCIN INJ 500 MG in SODIUM CHLORIDE 0.9% 250 ML 250 ML 250 MG IV (14:26)
[2025-03-21] MEDS: MAGNESIUM OXIDE 400 MG TABLET PO (14:28)
--- NOTE | 2025-03-21 14:45 | PC.SS ---
Rounding: On steroids and breathing treatments. may need O2 upon DC.
--- NOTE | 2025-03-21 17:08 | PC.PT ---
Patient is safe to stand pivot transfer to the commode with a FWW and 1 staff assist. RN made aware.
[2025-03-21] MEDS: RIVAROXABAN 10 MG, RIVAROXABAN 5 MG 15 MG PO (17:31)
[2025-03-22] VITALS (10 sets, daily range): BP systolic 115–127; BP diastolic 68–76; PULSE 79–92; RESP 16–93; TEMP 36.1–36.4; O2SAT 92–100
[2025-03-22] MEDS: ALBUTEROL/IPRATROPIUM (Duoneb) RT SOL 3 ML NEBU INH ×4 (00:19→18:33)
[2025-03-22] MEDS: LEVOTHYROXINE SODIUM 25 MCG TABLET PO (05:53)
[2025-03-22 06:10] LABS: Basophils # (Auto) 0.0 Thou/mm3 (0.0-0.2); Basophils % (Auto) 0 % (0-2.5); Eosinophils # (Auto) 0.0 Thou/mm3 (0.0-0.5); Eosinophils % (Auto) 0 % (0-10); Hematocrit 29.6 % (36.0-46.0); Hemoglobin 9.3 g/dL (12.0-16.0); Immature Granulocytes Auto 0.05 Thou/mm3 (0.00-0.00); Lymphocytes # (Auto) 1.6 Thou/mm3 (1.0-4.8); Lymphocytes % (Auto) 14 % (10-50); Mean Corpuscular HGB Conc 31.4 g/dl (31.0-37.0); Mean Corpuscular Hemoglobin 29.2 pg (25.0-35.0); Mean Corpuscular Volume 93 fL (80-100); Monocytes # (Auto) 0.9 Thou/mm3 (0.0-0.8); Monocytes % (Auto) 8 % (0-12); Neutrophils # (Auto) 8.3 Thou/mm3 (1.8-7.7); Neutrophils % (Auto) 77 % (37-80); Nucleated Red Blood Cell # 0.00 Thou/mm3 (0.00-0.00); Nucleated Red Blood Cell % 0 /100 WBC (0); Platelet Count 331 Thou/mm3 (140-440); RDW Standard Deviation 60.5 fL (36.4-46.3); Red Blood Count 3.19 Miln/mm3 (4.00-5.20); White Blood Count 10.9 Thou/mm3 (3.6-11.0)
[2025-03-22 06:57] LABS: Alanine Aminotransferase < 7 U/L (10-49); Albumin, Serum 3.2 gm/dL (3.4-4.8); Albumin/Globulin Ratio 1.3 (1.2-2.2); Alkaline Phosphatase 86 U/L (46-116); Anion Gap 10 (7-16); Aspartate Amino Transferase < 8 U/L (0-34); BUN/Creatinine Ratio 16 Ratio (12-20); Bilirubin,Total 0.2 mg/dL (0.3-1.2); Blood Urea Nitrogen 22 mg/dL (9-23); Calcium 9.2 mg/dL (8.3-10.6); Calcium (Corrected) 9.8 mg/dL (8.5-10.1); Carbon Dioxide 26.1 mMol/L (20.0-31.0); Chloride 106 mMol/L (98-107); Creatinine (Component) 1.4 mg/dL (0.6-1.3); Globulin 2.4 gm/dL (2.3-3.5); Glucose 109 mg/dL (74-106); Magnesium 1.5 mg/dL (1.6-2.6); Osmolality,Calculated 287 (275-295); Phosphorous 1.7 mg/dL (2.4-5.1); Potassium 3.7 mMol/L (3.4-5.1); Sodium 142 mMol/L (136-145); Total Protein 5.6 gm/dL (5.7-8.2); eGFR 40 See Note
[2025-03-22] MEDS: NAPH,KPH MBDB 1 PACKET (1.5 GM) PO (09:00)
[2025-03-22] MEDS: Magnesium Sulfate 2 GM Ivpb 2 GM/50 ML BAG IV (09:00)
[2025-03-22] MEDS: guaiFENesin SYRUP 200 MG/10 ML UDC 100 MG PO ×2 (09:04→20:07)
[2025-03-22] MEDS: PANTOPRAZOLE 40 MG TABLET PO (09:05)
--- NOTE | 2025-03-22 10:35 | PC.NURSE ---
pt at rest on RA 90%, pt on 2L O2 at rest 98% Pt sitting in chair on RA 78%, on 2L 94%
--- NOTE | 2025-03-22 11:11 | PC.SS ---
Addendum entered by Zee Campbell 03/22/25 14:44: SS spoke to [employer]. who confirmed they created a case and will be reaching out to family to deliver 02. SS spoke to Christine who confirmed she will wait for call and pickle sorter patient once delivered. Original Note: follow up note: SS met with patient to determine if she's agreeable to PT's recommendation of SNF. Patient declined. Patient wants to continue to d/c home with Home Health. Patient may need new home 02. SS spoke to floor nurse and she will be testing patient for 02 needs.
--- NOTE | 2025-03-22 13:37 | ESDS_ITS ---
<Statement entered by Salome Balbuena DO - 03/23/25 13:48> I, Salome Balbuena DO, attest that I was physically present for the edwards portions of the service and evaluated the patient with the resident and I reviewed and discussed the case with the resident and agree with the resident's findings and plans of care as documented above <Statement entered by Caleb Vargas MD - 03/22/25 18:23> Note reviewed and agree with care plan as documented. Please refer to the note below for further details. Plan discussed with attending physician Dr. Sree Vargas MD PGY-2 Internal Medicine Planned Discharge Date 03/22/25 DS: Providers Provider Date of admission: 03/20/25 16:20 Primary care physician: Chauncey Angel MD Admitting Provider: Salome Balbuena DO Attending Provider on Admission: Salome Balbuena DO Consults: 03/21/25 08:00 Referral Smoking Cessation Counseling Routine Comment: Smoking Cessation Education Needed 03/21/25 10:55 Referral Physical Therapy Routine Comment: Physician Instructions: Attending Provider on DC: Mayank Schmitt DO Discharging Provider: Mayank Schmitt DO DS: Diagnosis Discharge Diagnosis (1) Hypoxemia: Status: Acute Problem List Completed Was Problem List Reviewed/Reconciled?: Yes Hospital Course Hospital Course Hospital course: Hospital Course: Elana Salazar is a 70-year-old female with a past medical history of COPD and longstanding/current tobacco use, hypertension, hypothyroidism, and possible CHF who presented to the ED on 03/20/2025 for shortness of breath. She was admitted for management of her acute COPD exacerbation. During the patient's hospital stay she received steroids, scheduled DuoNebs, guaifenesin twice daily, and was treated with antibiotics and chest physiotherapy. Her hypertension was managed by continuing her home losartan medication, her hypothyroid managed with her home levothyroxine, her Parkinson's managed with her home ropinirole, and her recurrent left lower extremity DVTs with continuation of her home Xarelto. The patient began working with physical therapy and was able to ambulate with supplemental oxygen. Her shortness of breath and oxygen requirements improved and she was satting at 100% on 2 L nasal cannula upon discharge. All of her other vitals were also stable. She will be discharged with an albuterol inhaler to be used as needed for shortness of breath and wheezing. She will also be discharged on a Medrol Dosepak and a Trelegy inhaler. Problem List: #COPD exacerbation 2/2 #Recent Viral URI versus #History of smoking [id number] #Active smoker #Hypothyroidism #Hypertension #Parkinson's #History of left lower extremity DVT Discharge Instructions: * You will be discharged on an albuterol inhaler. Use 2 puffs every 6 hours as needed for shortness of breath or wheezing. * Take your Medrol tablets as the instructions say on the package. * Use your Trelegy inhaler daily. * Continue taking all other home medications as prescribed. * Follow-up with PCP within 1-2 weeks of discharge. * If you do not have a PCP, you can follow-up at the [facility] [phone]. * Return to ED if symptoms worsen. The patient was seen and discussed with my attending physician Dr. Sree KILPATRICK and my senior resident Dr. Sam JIMENEZ PGY-2. Mayank Schmitt DO PGY-1 Time Spent with Patient Time attestation: Total time spent providing and/or coordinating discharge services: More than 50% Time spent: Greater than 30 minutes Home Health Home Health Referral Orders: 03/21/25 14:55 Home Health Referral Routine Reason For Exam: acute COPD exacerbation Home-Bound The patient must either because of illness or injury, need the aid of supportive devices such as crutches, canes, wheelchairs, and walkers; the use of special transportation; or the assistance of another person in order to leave their place of residence; OR have a condition such that leaving his or her home is medically contraindicated. In addition, the patient also meets the following criteria: patient is normally unable to leave the home and leaving home requires considerable taxing effort. Addendum to Home Health Certification Practitioner's Certification: I certify that the patient has been under my care in the hospital and the care of attending physician (see below). We had a uudu-fn-cepa encounter on (see date below). My clinical findings indicate that the patient is home bound per the above criteria and the Home Health Services noted in these orders are medically necessary. The primary reason for the mwwt-yo-ntau encounter is related to the fact that the patient requires home health services. Date Certifying Kqax-cy-Kewm Physician Encounter: 03/20/25 Physician's Name who will Assume Oversight for Services: Chauncey Angel Physician's Phone No.who will Assume Oversight for Service: DIRECTOR OF IN SERVICE EDUCATION - Community Resources: No PT to Evaluate: Yes PT to evaluate and provide a treatmnet plan to increase patient's mobility and strength. Wound Care: No IV Therapy: No RN Safety Evaluation: Yes RN to evaluate and create a plan of care that will produce positive outcomes. Palliative Treatment: No Palliative treatment and evaluate the need for hospice. Home Health Aide - Personal Care: Yes Home Health Aide to assist with any ADL's. Exam Vital Signs Temp Pulse Resp BP Pulse Ox O2 Del Method O2 Flow Rate 97.1 F 82 23 H 117/71 98 Nasal Cannula 1 03/22/25 08:00 03/22/25 08:00 03/22/25 08:00 03/22/25 08:00 03/22/25 08:00 03/22/25 08:00 03/22/25 08:00 Narrative Exam General: Awake and in no acute distress. Neurologic: GCS 15. Alert and oriented x3, no gross neurological deficit, and patient able to move all 4 extremities. HEENT: Normocephalic, atraumatic, mucous membranes moist. Pupils reactive to light. Heart: Regular rate and rhythm, normal S1 and S2, no murmurs. Lungs: Increased work of breathing, expiratory wheezes bilaterally, slight accessory muscle use for respiration. Abdomen: Soft, nondistended, nontender, positive bowel sounds. No guarding or rebound tenderness. Extremities: No edema. 2+ radial and dorsalis pedis pulses bilaterally. Skin: Warm. Dry. No rash or ecchymoses. Discharge Plan Plan Patient Disposition: HOME (Self Care) Patient condition on transfer: Stable Care Plan Goals: * You will be discharged on an albuterol inhaler. Use 2 puffs every 6 hours as needed for shortness of breath or wheezing. * Take your Medrol tablets as the instructions say on the package. * Use your Trelegy inhaler daily. * Continue taking all other home medications as prescribed. * Follow-up with PCP within 1-2 weeks of discharge. * If you do not have a PCP, you can follow-up at the [facility] [phone]. * Return to ED if symptoms worsen. Prescriptions/Referrals Prescriptions/Med Rec: New methylprednisolone [Medrol (Lefty)] 4 mg tablets,dose pack 4 mg PO Q OTHER DAY Qty: 21 0RF Rx Instructions: Follow packet instructions albuterol sulfate 90 mcg/actuation HFA aerosol inhaler 2 puff inhalation Q6H PRN (Reason: shortness of breath or wheezing) Qty: 8.5 0RF Trelegy Ellipta 100-62.5-25 mcg blister with device 1 inh inhalation QDAY Qty: 60 0RF Continued levothyroxine 25 mcg tablet 25 mcg PO DAILY Patient Comments: TAKE 1 TABLET BY MOUTH EVERY DAY FOR 30 DAYS ONCE A DAY cyclobenzaprine 5 mg tablet 5 mg PO Q8H Patient Comments: TAKE 1 TABLET BY MOUTH THREE TIMES A DAY NEEDED losartan 100 mg tablet 100 mg PO DAILY Patient Comments: TAKE 1 TABLET BY MOUTH EVERY DAY ropinirole 0.5 mg tablet 0.5 mg PO Q8HR Patient Comments: TAKE 1 TABLET BY MOUTH THREE TIMES A DAY Xarelto 15 mg tablet 15 mg PO DAILY Patient Comments: TAKE 1 TABLET BY MOUTH ONCE EVERY DAY WITH FOOD FOR 30 DAYS Referrals: Chauncey Angel MD [Primary Care Provider, Family Practice] Patient/Caregiver Discharge Instructions Discharge Activity: activity as tolerated Education Materials: COPD: Coping with Fatigue, Discharge Instructions: COPD Print Language: Lithuanian Stand Alone Forms: [facility] Award Info., Patient Portal Info Letter Discharge Order Discharge Orders: Discharge (Routine); Ordered 03/22/25 Ordered By: Lm Stinson Quality Discharge Quality Measures VTE prophylaxis
[2025-03-22] MEDS: AZITHROMYCIN INJ 500 MG in SODIUM CHLORIDE 0.9% 250 ML 250 ML 250 MG IV (14:45)
--- NOTE | 2025-03-22 16:30 | PC.CC ---
pt is established with [facility]
[2025-03-22] MEDS: RIVAROXABAN 10 MG, RIVAROXABAN 5 MG 15 MG PO (17:50)
--- NOTE | 2025-03-22 17:55 | PC.NURSE ---
Received call from Christine stating she called [employer]. regarding the delivery of O2. She stated they would reach out to their dispatch and call her back to let her know if they would be delivering the Oxygen today or tomorrow morning. Pt made aware.
--- NOTE | 2025-03-22 19:49 | PC.NURSE ---
MD Aleman made aware that pt cant be discharge tonight DT oxygen not being delivered yet. Pt need O2 to go home.
[2025-03-23] VITALS (9 sets, daily range): BP systolic 109–137; BP diastolic 75–87; PULSE 65–92; RESP 16–20; TEMP 36.1–36.4; O2SAT 95–100
[2025-03-23] MEDS: ALBUTEROL/IPRATROPIUM (Duoneb) RT SOL 3 ML NEBU INH ×3 (00:33→12:33)
[2025-03-23] MEDS: LEVOTHYROXINE SODIUM 25 MCG TABLET PO (05:27)
[2025-03-23 06:04] LABS: Basophils # (Auto) 0.0 Thou/mm3 (0.0-0.2); Basophils % (Auto) 0 % (0-2.5); Eosinophils # (Auto) 0.0 Thou/mm3 (0.0-0.5); Eosinophils % (Auto) 0 % (0-10); Hematocrit 30.6 % (36.0-46.0); Hemoglobin 9.7 g/dL (12.0-16.0); Immature Granulocytes Auto 0.07 Thou/mm3 (0.00-0.00); Lymphocytes # (Auto) 1.4 Thou/mm3 (1.0-4.8); Lymphocytes % (Auto) 13 % (10-50); Mean Corpuscular HGB Conc 31.7 g/dl (31.0-37.0); Mean Corpuscular Hemoglobin 29.7 pg (25.0-35.0); Mean Corpuscular Volume 94 fL (80-100); Monocytes # (Auto) 0.9 Thou/mm3 (0.0-0.8); Monocytes % (Auto) 9 % (0-12); Neutrophils # (Auto) 8.2 Thou/mm3 (1.8-7.7); Neutrophils % (Auto) 77 % (37-80); Nucleated Red Blood Cell # 0.00 Thou/mm3 (0.00-0.00); Nucleated Red Blood Cell % 0 /100 WBC (0); Platelet Count 312 Thou/mm3 (140-440); RDW Standard Deviation 62.5 fL (36.4-46.3); Red Blood Count 3.27 Miln/mm3 (4.00-5.20); White Blood Count 10.6 Thou/mm3 (3.6-11.0)
[2025-03-23 06:39] LABS: Alanine Aminotransferase < 7 U/L (10-49); Albumin, Serum 3.2 gm/dL (3.4-4.8); Albumin/Globulin Ratio 1.4 (1.2-2.2); Alkaline Phosphatase 84 U/L (46-116); Anion Gap 9 (7-16); Aspartate Amino Transferase < 8 U/L (0-34); BUN/Creatinine Ratio 18 Ratio (12-20); Bilirubin,Total 0.2 mg/dL (0.3-1.2); Blood Urea Nitrogen 21 mg/dL (9-23); Calcium 9.0 mg/dL (8.3-10.6); Calcium (Corrected) 9.6 mg/dL (8.5-10.1); Carbon Dioxide 27.6 mMol/L (20.0-31.0); Chloride 106 mMol/L (98-107); Creatinine (Component) 1.2 mg/dL (0.6-1.3); Globulin 2.3 gm/dL (2.3-3.5); Glucose 97 mg/dL (74-106); Magnesium 1.8 mg/dL (1.6-2.6); Osmolality,Calculated 287 (275-295); Phosphorous 1.5 mg/dL (2.4-5.1); Potassium 3.8 mMol/L (3.4-5.1); Sodium 143 mMol/L (136-145); Total Protein 5.5 gm/dL (5.7-8.2); eGFR 49 See Note
--- NOTE | 2025-03-23 09:30 | PC.SS ---
Addendum entered by Zee Campbell 03/23/25 13:54: SS phoned [employer]. who confirmed the 02 is out for delivery. otr driver is coming from [place]. Delivery set between 3-5p.m. to hospital Original Note: SS phoned [employer]. and they state they will deliver 02 this afternoon to the hospital. SS asked for an ETA, but they could not provide at this time. SS will update patient and floor nurse. D/c scheduled for this afternoon once 02 is delivered.
[2025-03-23] MEDS: PANTOPRAZOLE 40 MG TABLET PO (09:40)
[2025-03-23] MEDS: guaiFENesin SYRUP 200 MG/10 ML UDC 100 MG PO (09:40)
[2025-03-23] MEDS: NAPH,KPH MBDB 1 PACKET (1.5 GM) PO (10:33)
--- NOTE | 2025-03-23 11:57 | ESDS_ITS ---
<Statement entered by Caleb Vargas MD - 03/23/25 16:46> Note reviewed and agree with care plan as documented. Please refer to the note below for further details. Plan discussed with attending physician Dr. El Vargas MD PGY-2 Internal Medicine Planned Discharge Date 03/23/25 DS: Providers Provider Date of admission: 03/20/25 16:20 Primary care physician: Chauncey Angel MD Admitting Provider: Salome Balbuena DO Attending Provider on Admission: Salome Balbuena DO Consults: 03/21/25 08:00 Referral Smoking Cessation Counseling Routine Comment: Smoking Cessation Education Needed 03/21/25 10:55 Referral Physical Therapy Routine Comment: Physician Instructions: Attending Provider on DC: Sidney Gallegos MD Discharging Provider: Mayank Schmitt DO DS: Diagnosis Discharge Diagnosis (1) Hypoxemia: Status: Acute Problem List Completed Was Problem List Reviewed/Reconciled?: Yes Hospital Course Hospital Course Hospital course: Hospital Course: Elana Salazar is a 70-year-old female with a past medical history of COPD and longstanding/current tobacco use, hypertension, hypothyroidism, and possible CHF who presented to the ED on 03/20/2025 for shortness of breath. She was admitted for management of her acute COPD exacerbation. During the patient's hospital stay she received steroids, scheduled DuoNebs, guaifenesin twice daily, and was treated with antibiotics and chest physiotherapy. Her hypertension was managed by continuing her home losartan medication, her hypothyroid managed with her home levothyroxine, her Parkinson's managed with her home ropinirole, and her recurrent left lower extremity DVTs with continuation of her home Xarelto. The patient began working with physical therapy and was able to ambulate with supplemental oxygen. Her shortness of breath and oxygen requirements improved and she was satting at 100% on 2 L nasal cannula upon discharge. All of her other vitals were also stable. She will be discharged with an albuterol inhaler to be used as needed for shortness of breath and wheezing. She will also be discharged on a Medrol Dosepak and a Trelegy inhaler. Problem List: #COPD exacerbation 2/2 #Recent Viral URI versus #History of smoking [id number] #Active smoker #Hypothyroidism #Hypertension #Parkinson's #History of left lower extremity DVT Discharge Instructions: * You will be discharged on an albuterol inhaler. Use 2 puffs every 6 hours as needed for shortness of breath or wheezing. * Take your Medrol tablets as the instructions say on the package. * Use your Trelegy inhaler daily. * Continue taking all other home medications as prescribed. * Follow-up with PCP within 1-2 weeks of discharge. * If you do not have a PCP, you can follow-up at the [facility] [phone]. * Return to ED if symptoms worsen. The patient was seen and discussed with my attending physician Dr. El JIMENEZ and my senior resident Dr. Sam JIMENEZ PGY-2. Mayank Schmitt DO PGY-1 Time Spent with Patient Time attestation: Total time spent providing and/or coordinating discharge services: Greater than 50%. Time spent: Greater than 30 minutes Home Health Home Health Referral Orders: 03/21/25 14:55 Home Health Referral Routine Reason For Exam: acute COPD exacerbation Home-Bound The patient must either because of illness or injury, need the aid of supportive devices such as crutches, canes, wheelchairs, and walkers; the use of special transportation; or the assistance of another person in order to leave their place of residence; OR have a condition such that leaving his or her home is medically contraindicated. In addition, the patient also meets the following criteria: patient is normally unable to leave the home and leaving home requires considerable taxing effort. Addendum to Home Health Certification Practitioner's Certification: I certify that the patient has been under my care in the hospital and the care of attending physician (see below). We had a cphw-da-cwvh encounter on (see date below). My clinical findings indicate that the patient is home bound per the above criteria and the Home Health Services noted in these orders are medically necessary. The primary reason for the giur-ps-npjo encounter is related to the fact that the patient requires home health services. Date Certifying Sqdi-vk-Jwxf Physician Encounter: 03/20/25 Physician's Name who will Assume Oversight for Services: Chauncey Angel Physician's Phone No.who will Assume Oversight for Service: BLOOD BANK ORDER CONTROL CLERK - Community Resources: No PT to Evaluate: Yes PT to evaluate and provide a treatmnet plan to increase patient's mobility and strength. Wound Care: No IV Therapy: No RN Safety Evaluation: Yes RN to evaluate and create a plan of care that will produce positive outcomes. Palliative Treatment: No Palliative treatment and evaluate the need for hospice. Home Health Aide - Personal Care: Yes Home Health Aide to assist with any ADL's. Exam Vital Signs Temp Pulse Resp BP Pulse Ox O2 Del Method O2 Flow Rate 97.6 F 88 16 135/75 H 98 Room Air 2 03/23/25 11:41 03/23/25 11:41 03/23/25 11:41 03/23/25 11:41 03/23/25 11:41 03/23/25 11:41 03/23/25 08:00 Narrative Exam General: Awake and in no acute distress. Neurologic: GCS 15. Alert and oriented x3, no gross neurological deficit, and patient able to move all 4 extremities. HEENT: Normocephalic, atraumatic, mucous membranes moist. Pupils reactive to light. Heart: Regular rate and rhythm, normal S1 and S2, no murmurs. Lungs: Increased work of breathing, expiratory wheezes bilaterally, slight accessory muscle use for respiration. Abdomen: Soft, nondistended, nontender, positive bowel sounds. No guarding or rebound tenderness. Extremities: No edema. 2+ radial and dorsalis pedis pulses bilaterally. Skin: Warm. Dry. No rash or ecchymoses. Discharge Plan Plan Patient Disposition: HOME (Self Care) Patient condition on transfer: Stable Care Plan Goals: * You will be discharged on an albuterol inhaler. Use 2 puffs every 6 hours as needed for shortness of breath or wheezing. * Take your Medrol tablets as the instructions say on the package. * Use your Trelegy inhaler daily. * Continue taking all other home medications as prescribed. * Follow-up with Primary Care Physician within 1-2 weeks of discharge. * If you do not have a Primary Care Physician, you can follow-up at the [facility] [phone]. * Return to Emergency Department if symptoms worsen. Prescriptions/Referrals Prescriptions/Med Rec: New methylprednisolone [Medrol (Lefty)] 4 mg tablets,dose pack 4 mg PO Q OTHER DAY Qty: 21 0RF Rx Instructions: Follow packet instructions albuterol sulfate 90 mcg/actuation HFA aerosol inhaler 2 puff inhalation Q6H PRN (Reason: shortness of breath or wheezing) Qty: 8.5 0RF Trelegy Ellipta 100-62.5-25 mcg blister with device 1 inh inhalation QDAY Qty: 60 0RF Continued levothyroxine 25 mcg tablet 25 mcg PO DAILY Patient Comments: TAKE 1 TABLET BY MOUTH EVERY DAY FOR 30 DAYS ONCE A DAY cyclobenzaprine 5 mg tablet 5 mg PO Q8H Patient Comments: TAKE 1 TABLET BY MOUTH THREE TIMES A DAY NEEDED losartan 100 mg tablet 100 mg PO DAILY Patient Comments: TAKE 1 TABLET BY MOUTH EVERY DAY ropinirole 0.5 mg tablet 0.5 mg PO Q8HR Patient Comments: TAKE 1 TABLET BY MOUTH THREE TIMES A DAY Xarelto 15 mg tablet 15 mg PO DAILY Patient Comments: TAKE 1 TABLET BY MOUTH ONCE EVERY DAY WITH FOOD FOR 30 DAYS Referrals: Chauncey Angel MD [Primary Care Provider, Family Practice] Patient/Caregiver Discharge Instructions Discharge Activity: activity as tolerated Other Discharge Activity Instructions:: You will be discharged on an albuterol inhaler. Use 2 puffs every 6 hours as needed for shortness of breath or wheezing. ? Take your Medrol tablets as the instructions say on the package. ? Use your Trelegy inhaler daily. ? Continue taking all other home medications as prescribed. ? Follow-up with Primary Care Physician within 1-2 weeks of discharge. ? If you do not have a Primary Care Physician, you can follow-up at the [facility] [phone]. ? Return to Emergency Department if symptoms worsen. Education Materials: COPD: Coping with Fatigue, Discharge Instructions: COPD Print Language: Nauruan Stand Alone Forms: Bonita Award Info., Patient Portal Info Letter Discharge Order Discharge Orders: Discharge (Routine); Ordered 03/23/25 Ordered By: Caleb Canchola [facility] Quality Discharge Quality Measures VTE prophylaxis Attestestation Attestation I Sidney Gallegos MD reviewed the note and agree with the resident's assessment & plan with modifications/additions/exceptions as below. I have personally reviewed labs, imaging, home meds/prior records, examined the patient, formulated and discussed management plan with the IM team. A 70-year-old female admitted with COPD exacerbation currently off oxygen saturating well on room air. Will continue antibiotic to complete a 7-day course with Augmentin and azithromycin for 5 days, will give short course of systemic steroids. Continue Xarelto for recurrent DVT history.
--- NOTE | 2025-03-23 16:38 | PC.CC ---
hh ref sent to [facility] for REBECCA.
--- NOTE | 2025-03-24 10:35 | PC.CC ---
Addendum entered by Aylin Sanford RN 03/24/25 12:44: REBECCA 03/26/25 Original Note: [facility] accepted and booked, waiting for SOC
== END 2025-03-23 17:21 | disposition home or self-care (01) | DRG 192 ==
LOC: SERX 15:22 → SERHOLD 16:39 → S3NX 03-21 06:01
PROVIDERS: Nurse Practitioner Family; Registered Nurse General Practice; Admitting Provider Internal Medicine; Emergency Provider Emergency Medicine; PCP Family Medicine; Visit Provider Internal Medicine
DX: J44.1 Chronic obstructive pulmonary disease with (acute) exacerbation (principal); I50.9 Heart failure, unspecified; I11.0 Hypertensive heart disease with heart failure; E03.9 Hypothyroidism, unspecified; F17.210 Nicotine dependence, cigarettes, uncomplicated; I45.10 Unspecified right bundle-branch block; Z88.0 Allergy status to penicillin; Z85.3 Personal history of malignant neoplasm of breast; Z86.718 Personal history of other venous thrombosis and embolism; G20.A1 Parkinson's disease without dyskinesia, without mention of fluctuations; Z99.81 Dependence on supplemental oxygen; Z90.710 Acquired absence of both cervix and uterus; Z79.01 Long term (current) use of anticoagulants; Z71.6 Tobacco abuse counseling; R09.02 Hypoxemia
CPT/HCPCS: 36415; 36600; 71045; 80053; 80061; 81001; 82803; 83605; 83615; 83735; 83880; 84100; 84145; 84484; 85025; 85610; 85730; 87040; 87400; 87811; 93005; 93225; 94640; 96365; 96366; 96375; 96376; 97163; 99284; A9270; J0456; J1644; J2470; J2919; J3475; J7050